=== PATIENT | male | born 2000 | race Caucasian/White ===

== ENCOUNTER 2023-01-10 04:07 | Emergency (ER) | payer BC ==
[2023-01-10 04:12] VITALS: RESP 16
[2023-01-10] MEDS ORDERED: IBUPROFEN 800 MG TAB PO STA (04:45)
[2023-01-10] MEDS ORDERED: dexAMETHasone 4 MG TAB PO STA (06:01)
--- NOTE | 2023-01-10 06:12 | XR ---
EXAMINATION TYPE: XR chest 2V DATE OF EXAM: 01/10/2023 COMPARISON: NONE HISTORY: Cough. TECHNIQUE: Frontal and lateral views of the chest are obtained. FINDINGS: There is no focal air space opacity, pleural effusion, or pneumothorax seen. The cardiac silhouette size is within normal limits. The osseous structures are intact. IMPRESSION: No acute infiltrate is seen.
--- NOTE | 2023-01-10 06:14 | ED ---
General Adult HPI - General Chief complaint: Upper Respiratory Infection Stated complaint: Flu-like symptoms Time Seen by Provider: 01/10/23 04:21 Source: patient, RN notes reviewed, old records reviewed Mode of arrival: EMS Limitations: no limitations - History of Present Illness Initial comments: Patient is a 22-year-old male who presents emergency Department with upper respiratory infection complaints. Endorses a sore throat, rhinorrhea, nonproductive cough. He is concerned he may have pneumonia. Patient does smoke. Is currently being treated with antibiotics for a tooth abscess which is improving. Denies any other acute complaints including nausea, vomiting, diarrhea. Presents for further evaluation at this time. Denies any fevers or sick contacts. - Related Data Allergies Allergy/AdvReac Type Severity Reaction Status Date / Time No Known Allergies Allergy Verified 01/10/23 04:12 Review of Systems ROS Statement: Those systems with pertinent positive or pertinent negative responses have been documented in the HPI. Review of Systems: CONST: Denies fever EYES: Denies blurry vision ENT: Endorses nasal congestion C/V: Denies Chest pain RESP: Denies shortness of breath GI: Denies abdominal pain : Denies dysuria SKIN: Denies rash. MSK: Denies joint pain. NEURO: Denies headache ROS Other: All systems not noted in ROS Statement are negative. Past Medical History Past Medical History: No Reported History History of Any Multi-Drug Resistant Organisms: None Reported Past Surgical History: Hernia Repair Past Psychological History: ADD/ADHD, Anxiety, Bipolar, Depression Smoking Status: Current every day smoker, Vaper Past Alcohol Use History: Occasional Past Drug Use History: Marijuana General Exam - General Exam Comments Initial Comments: General: Appears in no acute distress. Afebrile HEAD: Normal with no signs of head trauma. EYES: EOMI. ENT: Hearing grossly intact. Posterior oropharynx within acceptable limits. RESPIRATORY: No respiratory distress. No hypoxia. Clear breath sounds bilaterally. C/V: Regular rate and rhythm. ABD: Abdomen is nondistended. EXT: No obvious deformity. SKIN: No rashes or lesions observed on exposed skin. NEURO: Alert and oriented. Limitations: no limitations Course Vital Signs 01/10/23 01/10/23 01/10/23 04:08 04:20 05:12 Temperature 99 F 98.9 F Pulse Rate 88 79 Respiratory 16 16 16 Rate Blood Pressure 141/79 126/72 O2 Sat by Pulse 98 99 Oximetry Medical Decision Making - Medical Decision Making Was pt. sent in by a medical professional or institution (AGUEDA Lemus, [employer], urgent care, hospital, or snf...) When possible be specific @ -No Did you speak to anyone other than the patient for history (EMS, parent, family, police, friend...)? What history was obtained from this source @ -No Did you review nursing and triage notes (agree or disagree)? Why? @ -I reviewed and agree with nursing and triage notes Were old charts reviewed (outside hosp., previous admission, EMS record, old EKG, old radiological studies, urgent care reports/EKG's, snf records)? Report findings @ -No old charts were reviewed Differential Diagnosis (chest pain, altered mental status, abdominal pain women, abdominal pain men, vaginal bleeding, weakness, fever, dyspnea, syncope, headache, dizziness, GI bleed, back pain, seizure, CVA, palpatations, mental health, musculoskeletal)? @ -Viral syndrome, URI, pneumonia. This list is not all-inclusive. EKG interpreted by me (3pts min.). @ -None done X-rays interpreted by me (1pt min.). @ -Chest x-ray reveals no acute cardiopulmonary processes that is obvious. No infiltrate. CT interpreted by me (1pt min.). @ -None done U/S interpreted by me (1pt. min.). @ -None done What testing was considered but not performed or refused? (CT, X-rays, U/S, labs)? Why? @ -None What meds were considered but not given or refused? Why? @ -None Did you discuss the management of the patient with other professionals (professionals i.e. AGUEDA Lemus, [employer], lab, RT, psych nurse, social work coordinator, exercise teacher, teacher, learning officer, rifle case repairer)? Give summary @ -No Was smoking cessation discussed for >3mins.? @ -No Was critical care preformed (if so, how long)? @ -No Were there social determinants of health that impacted care today? How? (Homele ssness, low income, unemployed, alcoholism, drug addiction, transportation, low edu. Level, literacy, decrease access to med. care, group home, rehab)? @ -No Was there de-escalation of care discussed even if they declined (Discuss DNR or withdrawal of care, Hospice)? DNR status @ -No What co-morbidities impacted this encounter? (DM, HTN, Smoking, COPD, CAD, Cancer, CVA, ARF, Chemo, Hep., AIDS, mental health diagnosis, sleep apnea, morbid obesity)? @ -None Was patient admitted / discharged? Hospital course, mention meds given and route, prescriptions, significant lab abnormalities, going to OR and other pertinent info. @ -Based on the patient's presentation and physical exam, presents with upper respiratory symptoms. He is concerned that he may be having pneumonia or other URI. Vital signs within except for limits. Exam unremarkable. We will obtain chest x-ray his request as well as viral swab her throat swab. He was in agreement this plan. He will be symptomatically treated with a dose of steroid as well as Motrin. Chest x-ray shows no evidence of acute infection. Swabs and strep swab negative. After the patient. He'll be discharged home at this time. He was in agreement this plan. Discussed that he likely has a nonspecific viral uri. I instructed the patient to follow up with their PCP in the next 1-3 days. I explained that the patient should return to the emergency department if they experience any worsening symptoms. Strict return precautions were discussed with the patient. The patient expressed understanding of these instructions. I answered all questions that the patient had. The patient was discharged home in good condition with their prescriptions and follow up information. Undiagnosed new problem with uncertain prognosis? @ -No Drug Therapy requiring intensive monitoring for toxicity (Heparin, Nitro, Insulin, Cardizem)? @ -No Were any procedures done? @ -No Diagnosis/symptom? @ -Upper respiratory infection Acute, or Chronic, or Acute on Chronic? @ -Acute Uncomplicated (without systemic symptoms) or Complicated (systemic symptoms)? @ -Uncomplicated Side effects of treatment? @ -No Exacerbation, Progression, or Severe Exacerbation? @ -No Poses a threat to life or bodily function? How? (Chest pain, [place], [place], pneumonia, PE, COPD, DKA, ARF, appy, cholecystitis, CVA, Diverticulitis, Homicidal, Suicidal, threat to staff... and all critical care pts) @ -No - Lab Data Lab Results 01/10/23 01/10/23 Range/Units 04:47 04:47 Influenza Type A (PCR) Not Detected (Not Detectd) Influenza Type B (PCR) Not Detected (Not Detectd) RSV (PCR) Not Detected (Not Detectd) SARS-CoV-2 (PCR) Not Detected (Not Detectd) Group A Strep (PCR) NOT DETECTED (Not Detectd) Disposition Clinical Impression: URI (upper respiratory infection) Disposition: HOME SELF-CARE Condition: Good Is patient prescribed a controlled substance at d/c from ED?: No Referrals: Nonstaff,Physician [Primary Care Provider] - 1-2 days Time of Disposition: 06:05
[2023-01-10 06:16] VITALS: BP 126/72; PULSE 79; TEMP 98.9
== END 2023-01-10 06:17 | disposition home or self-care (01) ==
LOC: EC 04:07
DX: J06.9 Acute upper respiratory infection, unspecified (principal); F12.90 Cannabis use, unspecified, uncomplicated; F17.290 Nicotine dependence, other tobacco product, uncomplicated; Z86.59 Personal history of other mental and behavioral disorders; Z20.822 Contact with and (suspected) exposure to COVID-19
CPT/HCPCS: 87651; 87636; 71046; 99284; J8540

== ENCOUNTER 2023-03-20 14:44 | Inpatient (IN) | payer MEDICAID, OTHER ==
--- NOTE | 2023-03-20 15:29 | ED ---
General Adult HPI - General Source: patient, RN notes reviewed, old records reviewed Mode of arrival: ambulatory Limitations: no limitations <Jalil Encarnacion - Last Filed: 04/05/23 08:20> <Husam Watts - Last Filed: 04/10/23 03:28> - General Chief complaint: Psychiatric Symptoms Stated complaint: mental health Time Seen by Provider: 03/20/23 15:10 - History of Present Illness Initial comments: This is a 22-year-old male who presents emergency Department stating he is suicidal. Patient states he has a history of bipolar, depression, anxiety, borderline personality, and ADHD. Patient states he hasn't taking meds for quite a while. Patient states today he was clinical and was hanging himself. He decided that he didn't want to broke away from his depressive state as he put it and decided that he wanted to live and called the police. Patient denies any physical complaints today. Patient denies any headache patient denies any numbness weakness. Patient denies chest pain difficulty breathing or shortness of breath. Patient denies any nausea vomiting diarrhea. Patient denies any fever (Jalil Encarnacion) - Related Data Previous Rx's Medication Instructions Recorded ARIPiprazole [Abilify] 10 mg PO DAILY 30 Days #30 tab 03/26/23 Amoxicillin 500 mg PO Q8H 2 Days #6 cap 03/26/23 Nicotine 21Mg/24Hr Patch [Habitrol] 1 patch TRANSDERM DAILY 14 Days 03/26/23 #14 patch Nicotine Gum (Polacrilex) 2 mg BUCCAL Q4HR PRN 180 Days #30 03/26/23 [Nicorette] pieceofgum Ondansetron Odt [Zofran ODT] 8 mg PO BID PRN 14 Days #28 tab 03/26/23 Vortioxetine Hydrobromide 20 mg PO DAILY 30 Days #30 tab 03/26/23 [Trintellix] hydrOXYzine HCL [Atarax] 50 mg PO DAILY PRN 30 Days #60 tab 03/26/23 traZODone HCL [Desyrel] 100 mg PO HS 30 Days #30 tab 03/26/23 Allergies Allergy/AdvReac Type Severity Reaction Status Date / Time No Known Allergies Allergy Verified 03/28/23 13:51 Review of Systems ROS Other: All systems not noted in ROS Statement are negative. <Jalil Encarnacion - Last Filed: 04/05/23 08:20> ROS Other: All systems not noted in ROS Statement are negative. <Husam Watts - Last Filed: 04/10/23 03:28> ROS Statement: Those systems with pertinent positive or pertinent negative responses have been documented in the HPI. Past Medical History Past Medical History: No Reported History History of Any Multi-Drug Resistant Organisms: None Reported Past Surgical History: Hernia Repair Past Psychological History: ADD/ADHD, Anxiety, Bipolar, Depression Smoking Status: Current every day smoker, Vaper Past Alcohol Use History: Occasional Past Drug Use History: Marijuana - Past Family History Father Family Medical History: COPD <Jalil Encarnacion - Last Filed: 04/05/23 08:20> General Exam Limitations: no limitations <EncarnacionKhrisJalil - Last Filed: 04/05/23 08:20> - General Exam Comments Initial Comments: GENERAL: Patient is well-developed and well-nourished. Patient is nontoxic and well- hydrated and is in no acute distress. ENT: Neck is soft and supple. No significant lymphadenopathy is noted. Oropharynx is clear. Moist mucous membranes. Neck has full range of motion without eliciting any pain. EYES: The sclera were anicteric and conjunctiva were pink and moist. Extraocular movements were intact and pupils were equal round and reactive to light. Eyelids were unremarkable. PULMONARY: Unlabored respirations. Good breath sounds bilaterally. No audible rales rhonchi or wheezing was noted. CARDIOVASCULAR: There is a regular rate and rhythm without any murmurs gallops or rubs. ABDOMEN: Soft and nontender with normal bowel sounds. SKIN: Skin is clear with no lesions or rashes and otherwise unremarkable. NEUROLOGIC: Patient is alert and oriented x3. Cranial nerves II through XII are grossly intact. Motor and sensory are also intact. Normal speech, volume and content. Symmetrical smile. MUSCULOSKELETAL: Normal extremities with adequate strength and full range of motion. LYMPHATICS: No significant lymphadenopathy is noted PSYCHIATRIC: Patient states he is suicidal and was thinking of hanging himself. (Jalil Encarnacion) Course Vital Signs 03/20/23 03/20/23 03/21/23 14:56 20:29 04:29 Temperature 97.7 F Pulse Rate 89 86 72 Respiratory 16 18 20 Rate Blood Pressure 133/90 124/77 125/73 O2 Sat by Pulse 99 100 100 Oximetry Medical Decision Making - Lab Data Result diagrams: 03/22/23 11:08 03/22/23 11:08 <Jalil Encarnacion - Last Filed: 04/05/23 08:20> - Lab Data Result diagrams: 03/22/23 11:08 03/22/23 11:08 <Husam Watts - Last Filed: 04/10/23 03:28> - Medical Decision Making Was pt. sent in by a medical professional or institution (, [facility], GROUP PRESIDENT, urgent care, hospital, or alf...) When possible be specific @ -[No] Did you speak to anyone other than the patient for history (EMS, parent, family, police, friend...)? What history was obtained from this source @ -[No] Did you review nursing and triage notes (agree or disagree)? Why? @ -[I reviewed and agree with nursing and triage notes] Were old charts reviewed (outside hosp., previous admission, EMS record, old EKG, old radiological studies, urgent care reports/EKG's, alf records)? Report findings @ -[No old charts were reviewed] Differential Diagnosis (chest pain, altered mental status, abdominal pain women, abdominal pain men, vaginal bleeding, weakness, fever, dyspnea, syncope, headache, dizziness, GI bleed, back pain, seizure, CVA, palpatations, mental health, musculoskeletal)? @ -Frontal mental health EKG interpreted by me (3pts min.). @ -[As above] X-rays interpreted by me (1pt min.). @ -[None done] CT interpreted by me (1pt min.). @ -[None done] U/S interpreted by me (1pt. min.). @ -[None done] What testing was considered but not performed or refused? (CT, X-rays, U/S, labs)? Why? @ -[None] What meds were considered but not given or refused? Why? @ -[None] Did you discuss the management of the patient with other professionals (professionals i.e. AGUEDA Lemus, GROUP PRESIDENT, lab, RT, psych nurse, social worker health services, distributor advertising material, teacher, chief creative officer, food general manager)? Give summary @ -[No] Was smoking cessation discussed for >3mins.? @ -[No] Was critical care preformed (if so, how long)? @ -[No] Were there social determinants of health that impacted care today? How? (Homelessness, low income, unemployed, alcoholism, drug addiction, transportation, low edu. Level, literacy, decrease access to med. care, assisted, rehab)? @ -[No] Was there de-escalation of care discussed even if they declined (Discuss DNR or withdrawal of care, Hospice)? DNR status @ -[No] What co-morbidities impacted this encounter? (DM, HTN, Smoking, COPD, CAD, Cancer, CVA, ARF, Chemo, Hep., AIDS, mental health diagnosis, sleep apnea, morbid obesity)? @ -[None] Was patient admitted / discharged? Hospital course, mention meds given and route, prescriptions, significant lab abnormalities, going to OR and other pertinent info. @ -Currently we do not have any EPS nurse so patient is unable to be evaluated currently. Dr. Watts will take care of the patient starting at 9 PM (Jalil Encarnacion) Was patient admitted / discharged? Hospital course, mention meds given and route, prescriptions, significant lab abnormalities, going to OR and other pertinent info. @ -[The patient is subsequently seen by EPS and they will admit for further psychiatric care Undiagnosed new problem with uncertain prognosis? @ -[No] Drug Therapy requiring intensive monitoring for toxicity (Heparin, Nitro, Insulin, Cardizem)? @ -[No] Were any procedures done? @ -[No] Diagnosis/symptom? @ -[Acute on chronic mood disorder Acute suicidal ideation Acute, or Chronic, or Acute on Chronic? @ -[default] Uncomplicated (without systemic symptoms) or Complicated (systemic symptoms)? @ -[default] Side effects of treatment? @ -[No] Exacerbation, Progression, or Severe Exacerbation? @ -[No] Poses a threat to life or bodily function? How? (Chest pain, [place], [place], pneumonia, PE, COPD, DKA, ARF, appy, cholecystitis, CVA, Diverticulitis, Homicidal, Suicidal, threat to staff... and all critical care pts) @ -[Yes, worsening suicidal ideation may lead to attempt/ (Husam Watts) - Lab Data Lab Results 03/20/23 03/20/23 03/21/23 Range/Units 18:18 18:18 02:20 Urine Color Yellow Urine Appearance Clear (Clear) Urine pH 6.0 (5.0-8.0) Ur Specific [place] 1.020 (1.001-1.035) Urine Protein Trace H (Negative) Urine Glucose (UA) Negative (Negative) Urine Ketones Negative (Negative) Urine Blood Negative (Negative) Urine Nitrite Negative (Negative) Urine Bilirubin Negative (Negative) Urine Urobilinogen <2.0 (<2.0) mg/dL Ur Leukocyte Esterase Negative (Negative) Urine Opiates Screen Not Detected (NotDetected) Ur Oxycodone Screen Not Detected (NotDetected) Urine Methadone Screen Not Detected (NotDetected) Ur Propoxyphene Screen Not Detected (NotDetected) Ur Barbiturates Screen Not Detected (NotDetected) U Tricyclic Antidepress Not Detected (NotDetected) Ur Phencyclidine Scrn Not Detected (NotDetected) Ur Amphetamines Screen Not Detected (NotDetected) U Methamphetamines Scrn Not Detected (NotDetected) U Benzodiazepines Scrn Not Detected (NotDetected) Urine Cocaine Screen Not Detected (NotDetected) U Marijuana (THC) Screen Detected H (NotDetected) Coronavirus (PCR) Not Detected (Not Detectd) Disposition <Jalil Encarnacion - Last Filed: 04/05/23 08:20> <Husam Watts - Last Filed: 04/10/23 03:28> Clinical Impression: Mood disorder, Suicidal ideation Disposition: ADMITTED IP TO THIS [facility] Condition: Stable
[2023-03-20 18:49] LABS: Amphetamine Screen,Urine Not Detected (NotDetected); Barbiturate Screen,Urine Not Detected (NotDetected); Benzodiazepines Screen,Urine Not Detected (NotDetected); Cocaine Screen,Urine Not Detected (NotDetected); Methadone Screen, Urine Not Detected (NotDetected); Opiate Screen,Urine Not Detected (NotDetected); Phencyclidine Screen,Urine Not Detected (NotDetected); Tricyclic Antidepressant,Urine Not Detected (NotDetected); Urn Cannabinoid Scrn Detected (NotDetected)
[2023-03-20 18:50] LABS: Oxycodone Screen, Urine Not Detected (NotDetected)
[2023-03-20] MEDS: AMOXICILLIN 500 MG CAP PO SCH (20:30)
[2023-03-21] MEDS: AMOXICILLIN 500 MG CAP PO SCH ×3 (04:24→21:09)
[2023-03-21] MEDS ORDERED: hydrOXYzine HCL 50 MG/ML 1 ML VIAL IM PRN (05:11)
[2023-03-21] MEDS ORDERED: OLANZapine 10 MG VIAL IM PRN (05:11)
[2023-03-21] MEDS ORDERED: MAGNESIUM HYDROXIDE 2,400 MG/30 ML CUP PO PRN (05:11)
[2023-03-21 08:23] LABS: Appearance,Urine Clear (Clear); Bilirubin,Urine Negative (Negative); Blood,Urine Negative (Negative); Color,Urine Yellow; Glucose,Urine (UA) Negative (Negative); Ketones,Urine Negative (Negative); Leukocyte Esterase,Urine Negative (Negative); Nitrite,Urine Negative (Negative); Protein,Urine Trace (Negative); Urobilinogen,Urine <2.0 mg/dL (<2.0)
[2023-03-21] MEDS: NICOTINE 14MG/24HR PATCH TRANSDERM SCH (08:49)
[2023-03-21] MEDS: ARIPiprazole 5 MG TAB PO SCH (14:49)
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
[2023-03-21] MEDS: ESCITALOPRAM 5 MG TAB PO SCH (15:07)
[2023-03-21] MEDS: MAG HYDROX/AL HYDROX/SIMETH 30 ML CUP PO PRN (21:13)
[2023-03-21] MEDS: OLANZapine 5 MG TAB PO PRN (21:13)
--- NOTE | 2023-03-22 01:27 | P.CONS ---
History of Present Illness - Reason for Consult Consult date: 03/22/23 - History of Present Illness The patient is a 22-year-old male with a PMH of depression, anxiety, and ADHD who had presented to the emergency room with complaints of depression and suicidal ideation. The patient was admitted to the mental health unit where he was seen and evaluated. The patient reports that he has been going through a lot recently due to difficulties in his family relationships. He had plans of hanging himself. He denied any physical complaints at the time of interview. He denied experiencing chest discomfort, shortness of breath, fever, chills, cough, nausea, vomiting, abdominal pain, diarrhea. He reports recreational marijuana and tobacco use. Denied alcohol or additional substances. Review of systems: Pertinent positives and negatives as discussed in HPI, a complete review of systems was performed and all other systems are negative. Physical examination: General: non toxic, no distress, appears at stated age, normal weight Derm: no unusual rashes/lesions, no unusual ecchymoses, warm, dry Head: atraumatic, normocephalic, symmetric Eyes: EOMI, no lid lag, anicteric sclera ENT: Nose and ears atraumatic, no thrush, no pharyngeal erythema Neck: trachea midline, supple Mouth: no lip lesion, mucus membranes moist Cardiovascular: S1S2 reg, no murmur, no edema Lungs: CTA bilateral, no rhonchi, no rales , no accessory muscle use Abdominal: soft, nontender to palpation, no guarding Ext: no gross muscle atrophy, no contractures, Neuro: No gross focal neuro deficits noted Psych: Alert, oriented, appropriate affect Assessment: Marijuana and tobacco use Depression and suicidal ideation Imaging: None performed Data Review: Reviewed with urine tox cardiology positive for marijuana and UA unremarkable Plan: Advised on importance of cessation Defer management of depression and suicidal ideation to the primary psychiatry service Thank you for allowing us to participate in the care of this patient. We will follow peripherally. Do not hesitate to contact us with questions. Someone can be reached from the [facility] hospitalist group at all hours of the day a t [phone]. Past Medical History Past Medical History: No Reported History History of Any Multi-Drug Resistant Organisms: None Reported Past Surgical History: Hernia Repair Smoking Status: Current every day smoker, Vaper - Past Family History Father Family Medical History: COPD Medications and Allergies Home Medications Medication Instructions Recorded Confirmed Type Amoxicillin 500 mg PO Q8H 03/20/23 03/21/23 History Allergies Allergy/AdvReac Type Severity Reaction Status Date / Time No Known Allergies Allergy Verified 03/21/23 05:15 Physical Exam Vitals: Vital Signs Temp Pulse Pulse Resp BP BP Pulse Ox 03/21/23 06:23 98.0 F 63 14 117/77 99 03/21/23 04:29 72 20 125/73 100 Intake and Output 03/21/23 03/21/23 03/22/23 14:59 22:59 06:59 Other: Weight 62.256 kg Results Labs: Abnormal Lab Results - Last 24 Hours (Table) 03/20/23 Range/Units 18:18 Urine Protein Trace H (Negative)
[2023-03-22] MEDS: AMOXICILLIN 500 MG CAP PO SCH ×3 (04:17→20:57)
[2023-03-22] MEDS: ARIPiprazole 5 MG TAB PO SCH (08:56)
[2023-03-22] MEDS: ESCITALOPRAM 5 MG TAB PO SCH (08:56)
[2023-03-22] MEDS: NICOTINE 14MG/24HR PATCH TRANSDERM SCH (08:56)
[2023-03-22] MEDS: hydrOXYzine HCL 25 MG TAB PO PRN (09:00)
--- NOTE | 2023-03-22 09:46 | P.PN ---
Progress Note - Text Progress Note Date: 03/22/23 Interval history: Patient was seen today sitting in the lounge alone reading a book. Patient ap peared to have a depressed affect. He initially was fairly irritable with her anger and did not want to speak about the reason why he came to the hospital. He states that "tired to talk to the other doctor about the marijuana talk about it again". He states that he is still feeling fairly depressed, also was endorsing anxiety. He claims he is willing to have his medications adjusted and Lexapro increased. Claims that she is never tried trazodone and is willing to take it as she slept poorly last night. Continues trying to go to some groups. His appetite is fair at this time. He claims that he does not have a place to go once he is discharged due to getting kicked out of his girlfriend's house. At this time he is denying any current suicidal or homicidal ideations intent or plan. Denying any auditory or visual hallucinations. Mental status examination: General Appearance: Patient appears to be thin, stated age, hair dyed blond, nose ring. Patient appears to have fair hygiene and grooming. Behavior: Patient is seated without any agitated behavior. mildly irritable at times. Speech: Patient's speech is fluent and non-pressured. Mood/Affect: Patient reports their mood is depressed and anxious, affect is congruent and constricted. Suicidality/Homicidality: Patient denies having any homicidal ideation intent or plan. Denies any suicidal ideation, intent or plan today. Perceptions: Patient denies any visual hallucinations and denies any auditory hallucinations. Though content/process: There is no evidence of any delusional thought content and thought process is linear and goal-directed. vague and gaurded Memory and concentration: AOX3, grossly intact for the purposes of this session Judgment and insight: poor, improving mildly IMPRESSIONS: bipolar disorder unspecified Unspecified anxiety disorder Cannabis use disorder Nicotine dependence Borderline personality disorder PLAN: -Patient is admitted under voluntary status to MHU for stabilization of psychiatric symptoms and safety. Patient has signed adult voluntary form and is placed in patient's chart. -Medications: continue Abilify 5 mg daily for mood. increase Lexapro 10 mg daily for depression. add trazodone 50 mg qhs for insomnia/mood -Ativan and Haldol PRN for agitation/aggression -NRT - nicotine patch -SW on board for discharge planning. Encourage patient to participate in groups to work on coping skills. CPS report filed yesterday by Dr Soliz. likely discharge early next week, pt is homeless at this time.
[2023-03-22 11:17] LABS: Glucose,Whole Blood 120 mg/dL (70-110)
[2023-03-22 11:54] LABS: Basophils % (A) 1 %; Eosinophils % (A) 0 %; HCT 43.3 % (39.0-53.0); HGB 13.9 gm/dL (13.0-17.5); Lymphocytes % (A) 27 %; MCH 27.7 pg (25.0-35.0); MCV 86.6 fL (80.0-100.0); Mean Platelet Volume 7.5; Monocytes # (A) 0.4 k/uL (0-1.0); Monocytes % (A) 6 %; Neutrophils # (A) 4.8 k/uL (1.3-7.7); Neutrophils % (A) 65 %; Platelet Count 320 k/uL (150-450); RDW 15.1 % (11.5-15.5); WBC 7.3 k/uL (3.8-10.6)
[2023-03-22 12:12] LABS: ALT 18 U/L (4-49); AST 25 U/L (17-59); African American GFR (CKD) >90 (>60 ml/min/1.73 sqM); Albumin 5.4 g/dL (3.5-5.0); Alkaline Phosphatase 99 U/L (38-126); Anion Gap 11 mmol/L; Bilirubin, Delta 0.2 mg/dL (0.0-0.2); Bilirubin,Unconjugated 2.1 mg/dL (0.0-1.1); Blood Urea Nitrogen 16 mg/dL (9-20); Carbon Dioxide 26 mmol/L (22-30); Chloride 100 mmol/L (98-107); Glucose 113 mg/dL (74-99); Non-African American GFR(CKD) >90 (>60 ml/min/1.73 sqM); Sodium 137 mmol/L (137-145); Total Bilirubin 2.3 mg/dL (0.2-1.3); Total Protein 8.3 g/dL (6.3-8.2)
[2023-03-22] MEDS: ONDANSETRON ODT 8 MG TAB.RAPDIS PO PRN (12:17)
[2023-03-22] MEDS: NICOTINE 21MG/24HR PATCH TRANSDERM SCH (13:43)
[2023-03-22 16:18] LABS: Chol/HDL Ratio 2.41 Ratio; LDL Cholesterol,Calculated 84.4 mg/dL (0.0-131.0); VLDL Calculation 15.48 mg/dL (5.00-40.00)
[2023-03-22] MEDS ORDERED: traZODone HCL 50 MG TAB PO SCH (21:00)
[2023-03-23] MEDS: AMOXICILLIN 500 MG CAP PO SCH ×3 (04:55→20:41)
[2023-03-23 06:00] VITALS: RESP 18; TEMP 97.9
[2023-03-23] MEDS: NICOTINE 21MG/24HR PATCH TRANSDERM SCH ×2 (08:47→09:23)
[2023-03-23] MEDS: ARIPiprazole 5 MG TAB PO SCH (08:47)
[2023-03-23] MEDS ORDERED: NICOTINE GUM (POLACRILEX) 2 MG GUM BUCCAL PRN (08:59)
[2023-03-23] MEDS ORDERED: ESCITALOPRAM 10 MG TAB PO SCH (09:00)
[2023-03-23] MEDS: hydrOXYzine HCL 25 MG TAB PO PRN ×2 (09:17→16:38)
--- NOTE | 2023-03-23 11:55 | P.PN ---
Progress Note - Text Progress Note Date: 03/23/23 Interval history: Patient was seen today sitting in on group this morning and also in the aftern oon. Patient has been socializing with others on the unit more. He states that he was feeling very sick yesterday and believed that it was the Lexapro that was causing it. He claims that the Zofran did help and he is trying to stay hydrated. He claims that he still has a poor appetite since yesterday however we'll try to eat lunch today. He claims that he is feeling a bit better with regards to his mood over continues to endorse anxiety. He claims that he is still struggling with where he will live once he is discharged. He was asking about the [facility] situation in [place]. He claims he still feeling somewhat irritable and "snapped on someone" yesterday. States that he was able to sleep okay last night however did request. The trazodone increased. At this time he is denying any current suicidal or homicidal ideations intent or plan. Denying any auditory or visual hallucinations. Mental status examination: General Appearance: Patient appears to be thin, stated age, hair dyed blond, nose ring. Patient appears to have fair hygiene and grooming. Behavior: Patient is seated without any agitated behavior. Less irritable today, more cooperative. Speech: Patient's speech is fluent and non-pressured. Mood/Affect: Patient reports their mood is mainly anxious however improving, affect is congruent and constricted. Suicidality/Homicidality: Patient denies having any homicidal ideation intent or plan. Denies any suicidal ideation, intent or plan today. Perceptions: Patient denies any visual hallucinations and denies any auditory hallucinations. Though content/process: There is no evidence of any delusional thought content and thought process is linear and goal-directed. Memory and concentration: AOX3, grossly intact for the purposes of this session Judgment and insight: poor, improving mildly IMPRESSIONS: bipolar disorder unspecified Unspecified anxiety disorder Cannabis use disorder Nicotine dependence Borderline personality disorder PLAN: -Patient is admitted under voluntary status to MHU for stabilization of psychiatric symptoms and safety. Patient has signed adult voluntary form and is placed in patient's chart. -Medications: increase Abilify 10 mg daily for mood. d/c Lexapro due to possible a/e of nausea and replace with trintellix 20 mg daily for mood/anxiety increase trazodone 100 mg qhs for insomnia/mood -Ativan and Haldol PRN for agitation/aggression -NRT - nicotine patch -SW on board for discharge planning. Encourage patient to participate in groups to work on coping skills. CPS report filed by Dr Soliz on admission. likely discharge early next week, pt is homeless at this time and will likely be going to [facility].
[2023-03-23] MEDS ORDERED: LORazepam 1 MG TAB PO STA (12:47)
[2023-03-23] MEDS: VORTIOXETINE HYDROBROMIDE 20 MG TABLET PO SCH (13:22)
[2023-03-23] MEDS: ONDANSETRON ODT 8 MG TAB.RAPDIS PO PRN (14:33)
[2023-03-23] MEDS: traZODone HCL 100 MG TAB PO SCH (20:40)
[2023-03-24] MEDS: AMOXICILLIN 500 MG CAP PO SCH ×3 (05:14→20:30)
[2023-03-24] MEDS: ARIPiprazole 10 MG TAB PO SCH (08:38)
[2023-03-24] MEDS: NICOTINE 21MG/24HR PATCH TRANSDERM SCH (08:39)
[2023-03-24] MEDS: VORTIOXETINE HYDROBROMIDE 20 MG TABLET PO SCH (08:39)
[2023-03-24] MEDS: ONDANSETRON ODT 8 MG TAB.RAPDIS PO PRN ×2 (09:06→18:12)
--- NOTE | 2023-03-24 12:01 | P.PN ---
Subjective Progress Note Date: 03/24/23 Principal diagnosis: IMPRESSIONS: bipolar disorder unspecified Unspecified anxiety disorder Cannabis use disorder Nicotine dependence Borderline personality disorder Patient Name: Jed Saez Date of : 89 Patient Status: Inpatient Attending Provider: Armando Varela Date: 03/24/23 Initialization Date: 03/24/23 Follow-up by Dr. César Dennis M.D. for 03/24/23 Progress Note - Text Progress Note Date: 03/24/23 Interval history: The patient was seen today while he was walking in the hallway Patient stated that he has very important information that he would like to discuss Patient reports that he has started to sleepwalk since he was hospitalized He states that he only smokes weed and watches radio and watches TV all day He says that he has realized that he has multiple personalities and does not remember how many of these personalities that he may have He says that he is a completely different person at different times of the day He says that he cannot describe since he does not remember many of these personalities Mental status examination: General Appearance: Patient appears to be thin, stated age, hair dyed blond, nose ring. Patient appears to have fair hygiene and grooming. Behavior: Patient is without any agitated behavior. Mood/Affect: Patient reports their mood is mainly anxious however improving, affect is congruent and constricted. Suicidality/Homicidality: Patient denies having any homicidal ideation intent or plan. Denies any suicidal ideation, intent or plan today. Perceptions: Patient denies any visual hallucinations and denies any auditory hallucinations. Though content/process: There is no evidence of any delusional thought content and thought process is linear and goal-directed. Memory and concentration: AOX3, grossly intact for the purposes of this session Judgment and insight: poor, improving mildly IMPRESSIONS: bipolar disorder unspecified Unspecified anxiety disorder Cannabis use disorder Nicotine dependence Borderline personality disorder PLAN: -Patient is admitted under voluntary status to MHU for stabilization of psychiatric symptoms and safety. Patient has signed adult voluntary form and is placed in patient's chart. -Medications: increase Abilify 10 mg daily for mood. Lexapro has been discontinued due to possible a/e of nausea and replace with trintellix 20 mg daily for mood/anxiety trazodone 100 mg qhs for insomnia/mood -Ativan and Haldol PRN for agitation/aggression -NRT - nicotine patch - on board for discharge planning. Encourage patient to participate in groups to work on coping skills. CPS report filed by Dr Soliz on admission. likely discharge early next week, pt is homeless at this time and will likely be going to [facility]. César Dennis M.D. 03/24/2023 Objective - Vital Signs Vital signs: Vital Signs Temp 97.9 F 03/23/23 05:59 Pulse 72 03/24/23 04:39 Resp 18 03/23/23 05:59 BP 127/82 03/24/23 04:39 Pulse Ox 98 03/23/23 05:59 FiO2 - Labs CBC & Chem 7: 03/22/23 11:08 03/22/23 11:08
[2023-03-24] MEDS: hydrOXYzine HCL 25 MG TAB PO PRN (12:16)
[2023-03-24] MEDS: MAG HYDROX/AL HYDROX/SIMETH 30 ML CUP PO PRN ×2 (15:36→20:31)
[2023-03-24] MEDS: traZODone HCL 100 MG TAB PO SCH (20:31)
[2023-03-25] MEDS: hydrOXYzine HCL 25 MG TAB PO PRN ×3 (00:55→21:32)
[2023-03-25] MEDS: NICOTINE 21MG/24HR PATCH TRANSDERM SCH (05:02)
[2023-03-25] MEDS: AMOXICILLIN 500 MG CAP PO SCH ×3 (05:02→20:34)
[2023-03-25] MEDS: ACETAMINOPHEN TAB 325 MG TAB PO PRN ×2 (07:39→16:20)
[2023-03-25] MEDS: MAG HYDROX/AL HYDROX/SIMETH 30 ML CUP PO PRN (08:24)
[2023-03-25] MEDS: VORTIOXETINE HYDROBROMIDE 20 MG TABLET PO SCH (08:24)
[2023-03-25] MEDS: ARIPiprazole 10 MG TAB PO SCH (08:25)
[2023-03-25] MEDS: ONDANSETRON ODT 8 MG TAB.RAPDIS PO PRN (08:59)
--- NOTE | 2023-03-25 09:23 | P.PN ---
Subjective Progress Note Date: 03/25/23 Principal diagnosis: IMPRESSIONS: bipolar disorder unspecified Unspecified anxiety disorder Cannabis use disorder Nicotine dependence Borderline personality disorder Patient Name: Jed Saez Date of : 89 Patient Status: Inpatient Attending Provider: Armando Varela Date: 03/25/23 Follow-up by Dr. César Dennis M.D. for 03/25/23 Progress Note Date: 03/25/23 Interval history: The patient was just to be out of the room and this ad copy writer was able to have a conversation with the patient Patient however states that he was in a [place] and that he needs to go to take a shower Patient was asked about his the situation with homelessness where he snapped immediately stating that that was not my business and that it is something that he is not going to discuss Patient appears to be guarded and superficial with avoidant behavior Mental status examination: General Appearance: Patient appears to be thin, stated age, hair dyed blond, nose ring. Patient appears to have fair hygiene and grooming. Behavior: Patient is without any agitated behavior. Mood/Affect: Patient reports their mood is mainly anxious however improving, uncooperative today affect is congruent and constricted. Suicidality/Homicidality: Patient denies having any homicidal ideation intent or plan. Denies any suicidal ideation, intent or plan today. Perceptions: Patient denies any visual hallucinations and denies any auditory gonzalez llucinations. Though content/process: There is no evidence of any delusional thought content and thought process is linear and goal-directed. Memory and concentration: AOX3, grossly intact for the purposes of this session Judgment and insight: poor, improving mildly IMPRESSIONS: bipolar disorder unspecified Unspecified anxiety disorder Cannabis use disorder Nicotine dependence Borderline personality disorder PLAN: -Patient is admitted under voluntary status to MHU for stabilization of psy chiatric symptoms and safety. Patient has signed adult voluntary form and is placed in patient's chart. -Medications: increase Abilify 10 mg daily for mood. Lexapro has been discontinued due to possible a/e of nausea and replace with trintellix 20 mg daily for mood/anxiety trazodone 100 mg qhs for insomnia/mood -Ativan and Haldol PRN for agitation/aggression -NRT - nicotine patch -SW on board for discharge planning. Encourage patient to participate in groups to work on coping skills. CPS report filed by Dr Soliz on admission. likely discharge early next week, pt is homeless at this time and will likely be going to [facility]. Patient appears to be a candidate for long-term CBT DBT César Dennis M.D. 03/25/2023 Objective - Vital Signs Vital signs: Vital Signs Temp 97.9 F 03/25/23 06:04 Pulse 105 H 03/25/23 06:04 Resp 18 03/25/23 06:04 BP 148/71 03/25/23 06:04 Pulse Ox 98 03/25/23 06:04 FiO2 - Labs CBC & Chem 7: 03/22/23 11:08 03/22/23 11:08
[2023-03-25] MEDS: OLANZapine 5 MG TAB PO PRN (13:30)
[2023-03-25] MEDS: traZODone HCL 100 MG TAB PO SCH (21:31)
[2023-03-26] MEDS: AMOXICILLIN 500 MG CAP PO SCH ×2 (04:59→11:45)
[2023-03-26] MEDS: MAG HYDROX/AL HYDROX/SIMETH 30 ML CUP PO PRN (05:04)
[2023-03-26] MEDS: NICOTINE 21MG/24HR PATCH TRANSDERM SCH (05:57)
[2023-03-26 05:59] VITALS: BP 129/73; PULSE 97
[2023-03-26] MEDS: hydrOXYzine HCL 25 MG TAB PO PRN (06:13)
[2023-03-26] MEDS: ARIPiprazole 10 MG TAB PO SCH (08:00)
[2023-03-26] MEDS: VORTIOXETINE HYDROBROMIDE 20 MG TABLET PO SCH (08:00)
[2023-03-26] MEDS: ACETAMINOPHEN TAB 325 MG TAB PO PRN (08:01)
[2023-03-26] MEDS: ONDANSETRON ODT 8 MG TAB.RAPDIS PO PRN (09:39)
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
[2023-03-26 12:33] VITALS: BMI 19.7
== END 2023-03-26 17:18 | disposition home or self-care (01) | DRG 753 ==
LOC: EC 14:44 → 3MHU 03-21 05:01
PROVIDERS: ADMIT Psychiatry & Neurology Psychiatry; ATTEND Psychiatry & Neurology Psychiatry
DX: F31.9 Bipolar disorder, unspecified (principal); Z20.822 Contact with and (suspected) exposure to COVID-19; F39 Unspecified mood [affective] disorder; F41.9 Anxiety disorder, unspecified; G47.00 Insomnia, unspecified; F90.9 Attention-deficit hyperactivity disorder, unspecified type; I10 Essential (primary) hypertension; F60.3 Borderline personality disorder; R45.851 Suicidal ideations; Z79.899 Other long term (current) drug therapy; Z91.51 Personal history of suicidal behavior
CPT/HCPCS: 80053; 80061; 80306; 81003; 82075; 82248; 83036; 84443; 85025; 87635; 99285

== ENCOUNTER 2023-03-28 13:19 | Emergency (ER) | payer OTHER ==
[2023-03-28 13:51] VITALS: RESP 18
--- NOTE | 2023-03-28 13:56 | ED ---
ENT HPI - General Source: patient Mode of arrival: ambulatory Limitations: no limitations <Evan Rogel - Last Filed: 03/28/23 13:56> <Geraldine Mac - Last Filed: 03/28/23 20:19> - General Chief complaint: Dental/Oral Stated complaint: poss blood poisoning - History of Present Illness Initial comments: 22 year old male Presents to the ED with a chief complaint of dental pain. Patient states known abscess of the tooth on the left and notes that he has been on antibiotics for this for the past year. Patient states that he is currently on amoxicillin 500 mg. States today started to feel "out of it" and states that his face feels like "TV static". (Evan Rogel) Patient is 22-year-old male who presents the emergency department with concern for "blood poisoning." Patient states he was looking up symptoms on the [employer] website and became anxious about blood poisoning today. He reports mild dental pain in his upper left tooth which is not new. Patient has had this pain for about a month. States he has intermittently been on amoxicillin for dental infection for one year prescribed by urgent cares. Patient states he feels foggy. States he was recently discharged from [facility] during which he went through marijuana withdrawal. He denies fever, chills, nausea, vomiting, facial swelling, throat pain lockjaw, muffled voice. Denies chest pain, shortness of breath, abdominal pain. Patient does state he is very anxious. (Geraldine Mac) - Related Data Previous Rx's Medication Instructions Recorded ARIPiprazole [Abilify] 10 mg PO DAILY 30 Days #30 tab 03/26/23 Amoxicillin 500 mg PO Q8H 2 Days #6 cap 03/26/23 Nicotine 21Mg/24Hr Patch [Habitrol] 1 patch TRANSDERM DAILY 14 Days 03/26/23 #14 patch Nicotine Gum (Polacrilex) 2 mg BUCCAL Q4HR PRN 180 Days #30 03/26/23 [Nicorette] pieceofgum Ondansetron Odt [Zofran ODT] 8 mg PO BID PRN 14 Days #28 tab 03/26/23 Vortioxetine Hydrobromide 20 mg PO DAILY 30 Days #30 tab 03/26/23 [Trintellix] hydrOXYzine HCL [Atarax] 50 mg PO DAILY PRN 30 Days #60 tab 03/26/23 traZODone HCL [Desyrel] 100 mg PO HS 30 Days #30 tab 03/26/23 Allergies Allergy/AdvReac Type Severity Reaction Status Date / Time No Known Allergies Allergy Verified 03/28/23 13:51 Review of Systems ROS Other: All systems not noted in ROS Statement are negative. <Evan Rogel - Last Filed: 03/28/23 13:56> ROS Other: All systems not noted in ROS Statement are negative. <Geraldine Mac - Last Filed: 03/28/23 20:19> ROS Statement: Those systems with pertinent positive or pertinent negative responses have been documented in the HPI. Past Medical History Past Medical History: No Reported History History of Any Multi-Drug Resistant Organisms: None Reported Past Surgical History: Hernia Repair Past Psychological History: ADD/ADHD, Anxiety, Bipolar, Depression Smoking Status: Current every day smoker, Vaper Past Alcohol Use History: Occasional Past Drug Use History: None Reported, Marijuana - Past Family History Father Family Medical History: COPD <Juan FEvan - Last Filed: 03/28/23 13:56> General Exam Limitations: no limitations General appearance: alert, in no apparent distress Eye exam: Present: normal appearance Neck exam: Present: normal inspection Extremities exam: Present: normal inspection Back exam: Present: normal inspection Neurological exam: Present: alert, oriented X3 <Juan FEvan - Last Filed: 03/28/23 13:56> General appearance: alert, anxious Eye exam: Present: normal appearance, PERRL, EOMI. Absent: scleral icterus, conjunctival injection, periorbital swelling ENT exam: Present: normal oropharynx (No evidence of infection or abscess) Respiratory exam: Present: normal lung sounds bilaterally. Absent: respiratory distress, wheezes, rales, rhonchi, stridor Cardiovascular Exam: Present: regular rate, normal rhythm, normal heart sounds. Absent: systolic murmur, diastolic murmur, rubs, gallop, clicks GI/Abdominal exam: Present: soft, normal bowel sounds. Absent: distended, tenderness, guarding, rebound, rigid Psychiatric exam: Present: anxious Skin exam: Present: warm, dry, intact, normal color. Absent: rash <Geraldine Mac - Last Filed: 03/28/23 20:19> Course Vital Signs 03/28/23 03/28/23 13:47 16:47 Temperature 98.7 F 97.6 F Pulse Rate 82 78 Respiratory 18 18 Rate Blood Pressure 157/95 153/89 O2 Sat by Pulse 100 97 Oximetry Medical Decision Making <Evan Rogel - Last Filed: 03/28/23 13:56> <EstefaniaGeraldine - Last Filed: 03/28/23 20:19> - Medical Decision Making Quicknote portion performed. Signed Evan Rogel PA-C (Evan Rogel) Was pt. sent in by a medical professional or institution ([facility] Lemus, SALES AND OPERATIONS TRAINEE, urgent care, hospital, or [facility]...) When possible be specific @ -No Did you speak to anyone other than the patient for history (EMS, parent, family, police, friend...)? What history was obtained from this source @ -No Did you review nursing and triage notes (agree or disagree)? Why? @ -I reviewed and agree with nursing and triage notes Were old charts reviewed (outside hosp., previous admission, EMS record, old EKG, old radiological studies, urgent care reports/EKG's, [facility] records)? Report findings @ -No old charts were reviewed Differential Diagnosis (chest pain, altered mental status, abdominal pain women, abdominal pain men, vaginal bleeding, weakness, fever, dyspnea, syncope, headache, dizziness, GI bleed, back pain, seizure, CVA, palpatations, mental health)? @ -dental infection, abscess, sepsis. This list is not mentally all-inclusive EKG interpreted by me (3pts min.). @ -As above X-rays interpreted by me (1pt min.). @ -None done CT interpreted by me (1pt min.). @ -None done U/S interpreted by me (1pt. min.). @ -None done What testing was considered but not performed or refused? (CT, X-rays, U/S, labs)? Why? @ -None What meds were considered but not given or refused? Why? @ -None Did you discuss the management of the patient with other professionals (professionals i.e. , [facility], SALES AND OPERATIONS TRAINEE, lab, RT, psych nurse, community mental health social worker, asp net software developer, teacher, vessel traffic officer, lead case manager)? Give summary @ -No Was smoking cessation discussed for >3mins.? @ -No Was critical care preformed (if so, how long)? @ -No Were there social determinants of health that impacted care today? How? (Homelessness, low income, unemployed, alcoholism, drug addiction, transportation, low edu. Level, literacy, decrease access to med. care, usp, rehab)? @ -No Was there de-escalation of care discussed even if they declined (Discuss DNR or withdrawal of care, Hospice)? DNR status @ -No What co-morbidities impacted this encounter? (DM, HTN, Smoking, COPD, CAD, Cancer, CVA, ARF, Chemo, Hep., AIDS, mental health diagnosis, sleep apnea, morbid obesity)? @ -None Was patient admitted / discharged? Hospital course, mention meds given and route, prescriptions, significant lab abnormalities, going to OR and other pertinent info. @ -Patient presenting with concern for blood poisoning. He is nontoxic appearing, afebrile. No evidence of dental infection. Further workup with laboratory studies and imaging not indicated. Clinical presentation is not consistent with sepsis. Patient discharged in stable medical condition. He is to follow-up with primary care provider. Undiagnosed new problem with uncertain prognosis? @ -No Drug Therapy requiring intensive monitoring for toxicity (Heparin, Nitro, Insulin, Cardizem)? @ -No Were any procedures done? @ -No Diagnosis/symptom? @ Feared condition not demonstrated, anxiety Acute, or Chronic, or Acute on Chronic? @ -acute Uncomplicated (without systemic symptoms) or Complicated (systemic symptoms)? @ -uncomplicated Side effects of treatment? @ -No Exacerbation, Progression, or Severe Exacerbation? @ -No Poses a threat to life or bodily function? How? (Chest pain, [place], [place], pneumonia, PE, COPD, DKA, ARF, appy, cholecystitis, CVA, Diverticulitis, Homicidal, Suicidal, threat to staff... and all critical care pts) @ -No Dr. Bernal is my attending (Geraldine Mac) Disposition <Evan Rogel - Last Filed: 03/28/23 13:56> Is patient prescribed a controlled substance at d/c from ED?: No <Estefania,Geraldine - Last Filed: 03/28/23 20:19> Clinical Impression: Feared condition not demonstrated Disposition: HOME SELF-CARE Condition: Good Instructions (If sedation given, give patient instructions): Dental Abscess (ED), Toothache (ED), Anxiety (ED) Additional Instructions: Please follow-up with your primary care provider in 1-2 days. Return to the emergency department if you experience new, concerning, or worsening symptoms. Referrals: Allen Noonan MD [Primary Care Provider] - 1-2 days
[2023-03-28 16:49] VITALS: BP 153/89; PULSE 78; TEMP 97.6
== END 2023-03-28 18:02 | disposition home or self-care (01) ==
LOC: EC 13:19
DX: Z71.1 Person with feared health complaint in whom no diagnosis is made (principal); F17.290 Nicotine dependence, other tobacco product, uncomplicated; F12.90 Cannabis use, unspecified, uncomplicated; Z86.59 Personal history of other mental and behavioral disorders
CPT/HCPCS: 99282

== ENCOUNTER 2023-06-02 15:05 | Emergency (ER) | payer OTHER ==
[2023-06-02 15:23] VITALS: BP 111/62; PULSE 94; RESP 20; TEMP 98.4
--- NOTE | 2023-06-02 15:24 | ED ---
Skin/Abscess/FB HPI - General Chief complaint: Skin/Abscess/Foreign Body Stated complaint: Back sore Time Seen by Provider: 06/02/23 15:13 Source: patient, RN notes reviewed, old records reviewed Mode of arrival: ambulatory Limitations: no limitations - History of Present Illness Initial comments: 22-year-old well-appearing male presents ambulatory with complaints of a abscess on his left posterior shoulder since May 28. Patient states he had a similar abscess on his right chest wall on May 25 which is now resolved. He was placed on antibiotics and is currently taking them but does not remember the name. States there was concern for MRSA. He has been picking at the wound on his back and it is now tender to touch and draining clear yellow fluid. Patient is a daily smoker, marijuana, social drinker. States tetanus shot is up-to-date. MD complaint: abscess/boil -: days(s) (5) Tetanus Up to Date: yes Location: back (upper left posterior shoulder ) Severity scale (1-10): 7 Quality: constant Consistency: constant Improves with: none Worsens with: palpation Context: other (previous lesion right chest wall 05/25/23 now resolved, on unknown abx currently ) Associated symptoms: denies other symptoms Treatments Prior to Arrival: bandages, other (unknown antibiotic) - Related Data Previous Rx's Medication Instructions Recorded ARIPiprazole [Abilify] 10 mg PO DAILY 30 Days #30 tab 03/26/23 Amoxicillin 500 mg PO Q8H 2 Days #6 cap 03/26/23 Nicotine 21Mg/24Hr Patch [Habitrol] 1 patch TRANSDERM DAILY 14 Days 03/26/23 #14 patch Nicotine Gum (Polacrilex) 2 mg BUCCAL Q4HR PRN 180 Days #30 03/26/23 [Nicorette] pieceofgum Ondansetron Odt [Zofran ODT] 8 mg PO BID PRN 14 Days #28 tab 03/26/23 Vortioxetine Hydrobromide 20 mg PO DAILY 30 Days #30 tab 03/26/23 [Trintellix] hydrOXYzine HCL [Atarax] 50 mg PO DAILY PRN 30 Days #60 tab 03/26/23 traZODone HCL [Desyrel] 100 mg PO HS 30 Days #30 tab 03/26/23 Allergies Allergy/AdvReac Type Severity Reaction Status Date / Time No Known Allergies Allergy Verified 03/28/23 13:51 Review of Systems ROS Statement: Those systems with pertinent positive or pertinent negative responses have been documented in the HPI. ROS Other: All systems not noted in ROS Statement are negative. Past Medical History Past Medical History: No Reported History Additional Past Medical History / Comment(s): Borderline personality disorder, History of Any Multi-Drug Resistant Organisms: None Reported Past Surgical History: Hernia Repair Past Psychological History: ADD/ADHD, Anxiety, Bipolar, Depression Smoking Status: Current every day smoker Past Alcohol Use History: Occasional Past Drug Use History: None Reported, Marijuana - Past Family History Father Family Medical History: COPD General Exam Limitations: no limitations General appearance: alert, in no apparent distress Head exam: Present: atraumatic, normocephalic Eye exam: Present: normal appearance. Absent: scleral icterus, conjunctival injection, periorbital swelling Neck exam: Present: full ROM Respiratory exam: Absent: respiratory distress, accessory muscle use Cardiovascular Exam: Present: regular rate Back exam: Present: other (ulceration approx 1cm left posterior shoulder with minimal yellow drainage, no cellulitis) Neurological exam: Present: alert, oriented X3 Psychiatric exam: Present: normal affect, normal mood Skin exam: Present: warm, dry, normal color. Absent: cyanosis, diaphoretic, petechiae, pallor Course Vital Signs 06/02/23 15:07 Temperature 98.4 F Pulse Rate 94 Respiratory 20 Rate Blood Pressure 111/62 O2 Sat by Pulse 99 Oximetry Medical Decision Making - Medical Decision Making Was pt. sent in by a medical professional or institution (, PA, [employer], urgent care, hospital, or snf...) When possible be specific @ -No Did you speak to anyone other than the patient for history (EMS, parent, family, police, friend...)? What history was obtained from this source @ -No Did you review nursing and triage notes (agree or disagree)? Why? @ -I reviewed and agree with nursing and triage notes Were old charts reviewed (outside hosp., previous admission, EMS record, old EKG, old radiological studies, urgent care reports/EKG's, snf records)? Report findings @ -No old charts were reviewed Differential Diagnosis (chest pain, altered mental status, abdominal pain women, abdominal pain men, vaginal bleeding, weakness, fever, dyspnea, syncope, headache, dizziness, GI bleed, back pain, seizure, CVA, palpatations, mental health, musculoskeletal)? @ -Abscess, cellulitis, cyst EKG interpreted by me (3pts min.). @ -none X-rays interpreted by me (1pt min.). @ -None done CT interpreted by me (1pt min.). @ -None done U/S interpreted by me (1pt. min.). @ -None done What testing was considered but not performed or refused? (CT, X-rays, U/S, labs)? Why? @ -None What meds were considered but not given or refused? Why? @ -Patient states he is currently taking Keflex and Bactrim prescribed 2 days ago along with mupirocin ointment Did you discuss the management of the patient with other professionals (professionals i.e. , PA, [employer], lab, RT, psych nurse, social work job titles, microfilm operator, teacher, intelligence officer basic, director case)? Give summary @ -No Was smoking cessation discussed for >3mins.? @ -Yes Was critical care preformed (if so, how long)? @ -No Were there social determinants of health that impacted care today? How? (Homelessness, low income, unemployed, alcoholism, drug addiction, transport ation, low edu. Level, literacy, decrease access to med. care, penitentiary, rehab)? @ -No Was there de-escalation of care discussed even if they declined (Discuss DNR or withdrawal of care, Hospice)? DNR status @ -No What co-morbidities impacted this encounter? (DM, HTN, Smoking, COPD, CAD, Cancer, CVA, ARF, Chemo, Hep., AIDS, mental health diagnosis, sleep apnea, morbid obesity)? @ -Patient has history of ADHD, anxiety, bipolar depression, daily smoker. Was patient admitted / discharged? Hospital course, mention meds given and route, prescriptions, significant lab abnormalities, going to OR and other pertinent info. @ -Discharged 22-year-old well-appearing male presents ambulatory with complaints of a abscess on his left posterior shoulder since May 28. Patient states he had a similar abscess on his right chest wall on May 25 which is now resolved. He was placed on antibiotics and is currently taking them but does not remember the name. States there was concern for MRSA. He has been picking at the wound on his back and it is now tender to touch and draining clear yellow fluid. Patient is a daily smoker, marijuana, social drinker. States tetanus shot is up-to-date. On physical examination there is a 1 cm ulceration left posterior shoulder with no surrounding erythema. Minimal creamy drainage which was sent for culture. Patient was prescribed Bactrim, Keflex and Rocephin at [facility] urgent care 2 days ago and continues to take his medications. He was directed to stop smoking. Keep wound covered with mupirocin and bandage. Wash hands frequently. Follow-up with his primary care doctor next week. Return to the emergency room with a normal continues symptoms. He is agreeable to this plan of care. Case discussed with Dr. Siu Undiagnosed new problem with uncertain prognosis? @ -No Drug Therapy requiring intensive monitoring for toxicity (Heparin, Nitro, Insulin, Cardizem)? @ -No Were any procedures done? @ -No Diagnosis/symptom? @ -Acute wound status post abscess Acute, or Chronic, or Acute on Chronic? @ -Acute Uncomplicated (without systemic symptoms) or Complicated (systemic symptoms)? @ -Uncomplicated Side effects of treatment? @ -No Exacerbation, Progression, or Severe Exacerbation? @ -No Poses a threat to life or bodily function? How? (Chest pain, [place], [place], pneumonia, PE, COPD, DKA, ARF, appy, cholecystitis, CVA, Diverticulitis, Homicidal, Suicidal, threat to staff... and all critical care pts) @ -No Disposition Clinical Impression: Wound abscess Disposition: HOME SELF-CARE Condition: Good Instructions (If sedation given, give patient instructions): Acute Wound Care (ED) Additional Instructions: Keep wound covered with mupirocin ointment as prescribed. Continue the Bactrim and Keflex as prescribed by urgent care. Stop smoking. Follow-up with your primary care doctor next week and return to the emergency room with any new or concerning symptoms. Is patient prescribed a controlled substance at d/c from ED?: No Referrals: Allen Noonan MD [Primary Care Provider] - 1-2 days Time of Disposition: 15:32
== END 2023-06-02 15:56 | disposition home or self-care (01) ==
LOC: EC 15:05
DX: Z96.612 Presence of left artificial shoulder joint (principal); F17.200 Nicotine dependence, unspecified, uncomplicated; F12.90 Cannabis use, unspecified, uncomplicated; Z86.59 Personal history of other mental and behavioral disorders
CPT/HCPCS: 87070; 87205; 99282

== ENCOUNTER 2024-02-29 15:09 | Emergency (ER) | payer OTHER ==
[2024-02-29 15:39] VITALS: RESP 18
--- NOTE | 2024-02-29 16:16 | ED ---
Nausea/Vomiting/Diarrhea HPI - General Source: patient, RN notes reviewed Mode of arrival: ambulatory Limitations: no limitations <Candace Jeffery - Last Filed: 02/29/24 16:14> - General Source: patient, RN notes reviewed, old records reviewed <Tray Longoria - Last Filed: 02/29/24 22:03> - General Chief complaint: Nausea/Vomiting/Diarrhea Stated complaint: Heat Exhaustion,ARMINDA Time Seen by Provider: 02/29/24 15:24 - History of Present Illness Initial comments: Cynthia notethis is a 23-year-old male presents emergency department chief complaint of exhaustion after being in the heat. 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 Patient denies any syncopal event or passing out. Currently, patient states that he feels better after he was given fluids via EMS. (Candace Jeffery) Patient is a 23-year-old male who presents emergency department complaining of what appears to be heat exhaustion. 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 States that he was wearing sunblock and attempting to stay hydrated but he felt lightheaded, nauseous. Had some shortness of breath with this as well. EMS provided the patient with 500 cc fluid bolus as well as Zofran and he felt improved. Patient was worked up as a quick note. I evaluated patient when he is placed in a room. He states he is feeling improved at this time. No significant past medical history. (Tray Longoria) - Related Data Previous Rx's Medication Instructions Recorded ARIPiprazole [Abilify] 10 mg PO DAILY 30 Days #30 tab 03/26/23 Amoxicillin 500 mg PO Q8H 2 Days #6 cap 03/26/23 Nicotine 21Mg/24Hr Patch [Habitrol] 1 patch TRANSDERM DAILY 14 Days 03/26/23 #14 patch Nicotine Gum (Polacrilex) 2 mg BUCCAL Q4HR PRN 180 Days #30 03/26/23 [Nicorette] pieceofgum Ondansetron Odt [Zofran ODT] 8 mg PO BID PRN 14 Days #28 tab 03/26/23 Vortioxetine Hydrobromide 20 mg PO DAILY 30 Days #30 tab 03/26/23 [Trintellix] hydrOXYzine HCL [Atarax] 50 mg PO DAILY PRN 30 Days #60 tab 03/26/23 traZODone HCL [Desyrel] 100 mg PO HS 30 Days #30 tab 03/26/23 Allergies Allergy/AdvReac Type Severity Reaction Status Date / Time No Known Allergies Allergy Verified 02/29/24 15:39 Review of Systems ROS Other: All systems not noted in ROS Statement are negative. <Candace Jeffery - Last Filed: 02/29/24 16:14> ROS Other: All systems not noted in ROS Statement are negative. <Tray Longoria - Last Filed: 02/29/24 22:03> ROS Statement: Those systems with pertinent positive or pertinent negative responses have been documented in the HPI. Review of Systems: CONST: Denies fever EYES: Denies blurry vision ENT: Denies nasal congestion C/V: Denies Chest pain RESP: Denies shortness of breath GI: Denies abdominal pain : Denies dysuria SKIN: Denies rash. MSK: Denies joint pain. NEURO: Denies headache (Tray Longoria) Past Medical History Past Medical History: No Reported History Additional Past Medical History / Comment(s): Borderline personality disorder, History of Any Multi-Drug Resistant Organisms: MRSA Date of last positivie culture/infection: 06/02/23 MDRO Source:: Back Past Surgical History: Hernia Repair Past Psychological History: ADD/ADHD, Anxiety, Bipolar, Depression Smoking Status: Current every day smoker Past Alcohol Use History: Occasional Past Drug Use History: Marijuana - Past Family History Father Family Medical History: COPD <Candace Jeffery - Last Filed: 02/29/24 16:14> General Exam Limitations: no limitations <Candace Jeffery - Last Filed: 02/29/24 16:14> <Tray Longoria - Last Filed: 02/29/24 22:03> - General Exam Comments Initial Comments: Visual Physical Exam Vital signs reviewed General: Well-appearing, nontoxic, no acute distress. Head: Normocephalic, atraumatic Eyes: PERRLA, EOMI ENT: Airway patent Chest: Nonlabored breathing Skin: No visual rash, normal skin tone Neuro: Alert and oriented 3 Musculoskeletal: No gross abnormalities (Candace Jeffery) General: Appears in no acute distress. HEAD: Normal with no signs of head trauma. EYES: PERRLA, EOMI, conjunctiva normal, no discharge. ENT: Hearing grossly intact, normal oropharynx. RESPIRATORY: Clear breath sounds bilaterally. No wheezes, rales, or rhonchi. C/V: Regular rate and rhythm. S1 and S2 auscultated, no edema, peripheral pulses 2+ and intact throughout ABD: Abd is soft, nontender, nondistended EXT: Normal range of motion, no obvious deformity SKIN: Appears to have sunburn over bilateral shoulders. NEURO: Alert and oriented x 4. Cranial nerves II-XII intact. No focal sensory o r strength deficits. (Tray Longoria) Course Vital Signs 02/29/24 02/29/24 02/29/24 15:36 18:53 19:20 Temperature 98.1 F 98 F 98 F Pulse Rate 88 82 78 Respiratory 18 18 18 Rate Blood Pressure 128/78 120/79 121/87 O2 Sat by Pulse 99 99 99 Oximetry Medical Decision Making <Candace Jeffery - Last Filed: 02/29/24 16:14> - Lab Data Result diagrams: 02/29/24 16:56 02/29/24 16:56 <Tray Longoria - Last Filed: 02/29/24 22:03> - Medical Decision Making I completed the quick note portion of this chart signed Candace Jeffery PA-C (Candace Jeffery) Was pt. sent in by a medical professional or institution ([facility] Lemus, [employer], urgent care, hospital, or half-way...) When possible be specific @ -No Did you speak to anyone other than the patient for history (EMS, parent, family, police, friend...)? What history was obtained from this source @ -No Did you review nursing and triage notes (agree or disagree)? Why? @ -I reviewed and agree with nursing and triage notes Were old charts reviewed (outside hosp., previous admission, EMS record, old EKG, old radiological studies, urgent care reports/EKG's, half-way records)? Report findings @ -No old charts were reviewed Differential Diagnosis (chest pain, altered mental status, abdominal pain women, abdominal pain men, vaginal bleeding, weakness, fever, dyspnea, syncope, headache, dizziness, GI bleed, back pain, seizure, CVA, palpatations, mental health, musculoskeletal)? @ -Heat exhaustion, dehydration, [place]. This list is not all inclusive. EKG interpreted by me (3pts min.). @ -None done X-rays interpreted by me (1pt min.). @ -None done CT interpreted by me (1pt min.). @ -None done U/S interpreted by me (1pt. min.). @ -None done What testing was considered but not performed or refused? (CT, X-rays, U/S, labs)? Why? @ -None What meds were considered but not given or refused? Why? @ -None Did you discuss the management of the patient with other professionals (professionals i.e. , PA, WASTE RECLAIMER, lab, RT, psych nurse, social services analyst, rn plasma center, teacher, geological technical officer, director of casework services)? Give summary @ -No Was smoking cessation discussed for >3mins.? @ -No Was critical care preformed (if so, how long)? @ -No Were there social determinants of health that impacted care today? How? (Homelessness, low income, unemployed, alcoholism, drug addiction, transportation, low edu. Level, literacy, decrease access to med. care, [facility], rehab)? @ -No Was there de-escalation of care discussed even if they declined (Discuss DNR or withdrawal of care, Hospice)? DNR status @ -No What co-morbidities impacted this encounter? (DM, HTN, Smoking, COPD, CAD, Cancer, CVA, ARF, Chemo, Hep., AIDS, mental health diagnosis, sleep apnea, morbid obesity)? @ -None Was patient admitted / discharged? Hospital course, mention meds given and route, prescriptions, significant lab abnormalities, going to OR and other pertinent info. @ -Patient originally presents as a quick note. I evaluated him when he was placed in room. Presents for suspected heat exhaustion and dehydration. After Zofran and a small fluid bolus he feels improved. Did recommend 2 L fluid bolus which she was in agreement with and I will add on creatinine kinase. Patient was in agreement this plan. Vital signs within acceptable limits. Laboratory studies are all unremarkable including the normal creatinine kinase. I update the patient at this time. He would like to go home. I believe this is reasonable. Strict return precautions discussed. Recommended he remain hydrated if he is working outside in the hot heat as well as using sunblock as he appears to have sunburn. I instructed the patient to follow up with their PCP in the next 1-3 days. I explained that the patient should return to the emergency department if they experience any worsening symptoms. Strict return precautions were discussed with the patient. The patient expressed understanding of these instructions. I answered all questions that the patient had. The patient was discharged home in good condition with their prescriptions and follow up information. Undiagnosed new problem with uncertain prognosis? @ -No Drug Therapy requiring intensive monitoring for toxicity (Heparin, Nitro, Insulin, Cardizem)? @ -No Were any procedures done? @ -No Diagnosis/symptom? @ -Heat exhaustion, dehydration,sunburn Acute, or Chronic, or Acute on Chronic? @ -Acute Uncomplicated (without systemic symptoms) or Complicated (systemic symptoms)? @ -Complicated Side effects of treatment? @ -No Exacerbation, Progression, or Severe Exacerbation? @ -No Poses a threat to life or bodily function? How? (Chest pain, [place], [place], pneumonia, PE, COPD, DKA, ARF, appy, cholecystitis, CVA, Diverticulitis, Homicidal, Suicidal, threat to staff... and all critical care pts) @ -Likely (Tray Longoria) - Lab Data Lab Results 02/29/24 02/29/24 02/29/24 Range/Units 16:56 16:56 18:17 WBC 6.2 (3.8-10.6) k/uL RBC 4.64 (4.30-5.90) m/uL Hgb 13.5 (13.0-17.5) gm/dL Hct 41.5 (39.0-53.0) % MCV 89.4 (80.0-100.0) fL MCH 29.2 (25.0-35.0) pg MCHC 32.7 (31.0-37.0) g/dL RDW 12.6 (11.5-15.5) % Plt Count 237 (150-450) k/uL MPV 7.0 Neutrophils % 57 % Lymphocytes % 33 % Monocytes % 6 % Eosinophils % 2 % Basophils % 1 % Neutrophils # 3.6 (1.3-7.7) k/uL Lymphocytes # 2.1 (1.0-4.8) k/uL Monocytes # 0.3 (0-1.0) k/uL Eosinophils # 0.1 (0-0.7) k/uL Basophils # 0.0 (0-0.2) k/uL Sodium 139 (137-145) mmol/L Potassium 4.4 (3.5-5.1) mmol/L Chloride 110 H (98-107) mmol/L Carbon Dioxide 25 (22-30) mmol/L Anion Gap 4 mmol/L BUN 12 (9-20) mg/dL Creatinine 0.84 (0.66-1.25) mg/dL Est GFR (CKD-EPI)AfAm >90 (>60 ml/min/1.73 sqM) Est GFR (CKD-EPI)NonAf >90 (>60 ml/min/1.73 sqM) Glucose 96 (74-99) mg/dL Calcium 9.2 (8.4-10.2) mg/dL Total Bilirubin 0.6 (0.2-1.3) mg/dL AST 27 (17-59) U/L ALT 29 (4-49) U/L Alkaline Phosphatase 96 (38-126) U/L Creatine Kinase 106 (55-170) U/L Total Protein 6.7 (6.3-8.2) g/dL Albumin 4.5 (3.5-5.0) g/dL Disposition <Candace Jeffery - Last Filed: 02/29/24 16:14> Is patient prescribed a controlled substance at d/c from ED?: No Time of Disposition: 19:10 <Tray Longoria - Last Filed: 02/29/24 22:03> Clinical Impression: Heat exhaustion, Dehydration, Sunburn Disposition: HOME SELF-CARE Condition: Good Instructions (If sedation given, give patient instructions): Dehydration (ED) Referrals: Shira Carver MD [Primary Care Provider] - 1-2 days
[2024-02-29 17:06] LABS: Basophils % (A) 1 %; Eosinophils # (A) 0.1 k/uL (0-0.7); Eosinophils % (A) 2 %; HCT 41.5 % (39.0-53.0); HGB 13.5 gm/dL (13.0-17.5); Lymphocytes # (A) 2.1 k/uL (1.0-4.8); Lymphocytes % (A) 33 %; MCH 29.2 pg (25.0-35.0); MCHC 32.7 g/dL (31.0-37.0); MCV 89.4 fL (80.0-100.0); Monocytes # (A) 0.3 k/uL (0-1.0); Monocytes % (A) 6 %; Neutrophils # (A) 3.6 k/uL (1.3-7.7); Neutrophils % (A) 57 %; Platelet Count 237 k/uL (150-450); RBC 4.64 m/uL (4.30-5.90); RDW 12.6 % (11.5-15.5); WBC 6.2 k/uL (3.8-10.6)
[2024-02-29 17:23] LABS: ALT 29 U/L (4-49); AST 27 U/L (17-59); African American GFR (CKD) >90 (>60 ml/min/1.73 sqM); Albumin 4.5 g/dL (3.5-5.0); Alkaline Phosphatase 96 U/L (38-126); Anion Gap 4 mmol/L; Blood Urea Nitrogen 12 mg/dL (9-20); Calcium 9.2 mg/dL (8.4-10.2); Carbon Dioxide 25 mmol/L (22-30); Chloride 110 mmol/L (98-107); Glucose 96 mg/dL (74-99); Non-African American GFR(CKD) >90 (>60 ml/min/1.73 sqM); Potassium 4.4 mmol/L (3.5-5.1); Sodium 139 mmol/L (137-145); Total Bilirubin 0.6 mg/dL (0.2-1.3); Total Protein 6.7 g/dL (6.3-8.2)
[2024-02-29] MEDS: SODIUM CHLORIDE 0.9% 1,000 ML IV STA ×2 (18:05→18:22)
[2024-02-29 18:53] VITALS: TEMP 98
[2024-02-29 19:22] VITALS: BP 121/87; PULSE 78
== END 2024-02-29 19:20 | disposition home or self-care (01) ==
LOC: EC 15:09
DX: E86.0 Dehydration (principal); L55.9 Sunburn, unspecified; F17.200 Nicotine dependence, unspecified, uncomplicated; X30.XXXA Exposure to excessive natural heat, initial encounter
CPT/HCPCS: 36415; 80053; 82550; 85025; 96360; 99284

== ENCOUNTER 2024-03-24 18:49 | Emergency (ER) | payer OTHER ==
[2024-03-24] MEDS ORDERED: ONDANSETRON 4 MG/2 ML VIAL ONE (20:13)
[2024-03-24] MEDS ORDERED: KETOROLAC 15 MG/ML 1 ML VIAL ONE (20:13)
[2024-03-24] MEDS ORDERED: SODIUM CHLORIDE 0.9% 1,000 ML BAG ONE (20:15)
--- NOTE | 2024-04-23 10:39 | US ---
Site ID [facility] Patient Jed Saez ID [id number] Age/Gender: 23Y, F Order # N/A Procedure US gallbladder Date 03/24/2024 10:23:00 PM INDICATION: Patient age: Female; 23 year old; Reason for study: Abdominal pain COMPARISON: None, please note PACS Production downtime occurred during the radiologist interpretation of these images with limited priors/reports.. TECHNIQUE: Multiple grayscale and color doppler ultrasound images of the right upper abdomen obtained utilizing transabdominal imaging. FINDINGS: PANCREAS: Limited evaluation of the pancreas secondary to bowel. LIVER: The liver demonstrates a normal echotexture. There is no evidence of dilated ducts, cystic structures , or solid mass. Measures a total 0.3 cm. GALLBLADDER: The gallbladder is contracted with stones and attenuation. No significant wall thickening. No pericho lecystic fluid. No shadowing calculi identified. The common duct measures approximately 3 mm. Per son ographer, the sonographic Woodall's sign was negative. RIGHT KIDNEY: The right kidney measures 10.2 x 4.3 x 4.3 cm, without evidence of hydronephrosis, shadowing calculus , or contour deforming solid mass. Renal parenchymal echogenicity is within normal limits. IMPRESSION: No sonographic evidence for acute process.
== END 2024-03-24 22:54 | disposition home or self-care (01) ==
LOC: EC 18:49
DX: R10.9 Unspecified abdominal pain (principal)
CPT/HCPCS: 76705; 96361; 96374; 99284

== ENCOUNTER 2024-03-29 22:38 | Emergency (ER) | payer OTHER ==
[~2024-03-29 22:38] MED LIST: IBUPROFEN 600 MG STARTER PACK 4 TAB BTL ONE; KETOROLAC 15 MG/ML 1 ML VIAL ONE; traMADol 50 MG STARTER PACK 3 TAB BTL ONE
== END 2024-03-30 00:15 | disposition home or self-care (01) ==
LOC: EC 22:38
DX: T22.00XA Burn of unspecified degree of shoulder and upper limb, except wrist and hand, unspecified site, initial encounter (principal)
CPT/HCPCS: 96372; 99283

== ENCOUNTER 2024-05-12 03:34 | Emergency (ER) | payer OTHER ==
[2024-05-12 03:50] VITALS: RESP 16; TEMP 97.8
--- NOTE | 2024-05-12 04:11 | ED ---
URI HPI - General Chief Complaint: Upper Respiratory Infection Stated Complaint: cough SOB Time Seen by Provider: 05/12/24 04:00 Source: patient Mode of arrival: ambulatory Limitations: no limitations - History of Present Illness Initial Comments: 23-year-old male presents emergency department reporting sore throat, nasal congestion, nasal drainage, shortness of breath for the past 2 days. Reports that he was exposed to COVID while at work. He has not taken any home COVID tests. He denies fevers. No nausea vomiting or diarrhea. No other alleviating, precipitating or modifying factors - Related Data Previous Rx's Medication Instructions Recorded ARIPiprazole [Abilify] 10 mg PO DAILY 30 Days #30 tab 03/26/23 Amoxicillin 500 mg PO Q8H 2 Days #6 cap 03/26/23 Nicotine 21Mg/24Hr Patch [Habitrol] 1 patch TRANSDERM DAILY 14 Days 03/26/23 #14 patch Nicotine Gum (Polacrilex) 2 mg BUCCAL Q4HR PRN 180 Days #30 03/26/23 [Nicorette] pieceofgum Ondansetron Odt [Zofran ODT] 8 mg PO BID PRN 14 Days #28 tab 03/26/23 Vortioxetine Hydrobromide 20 mg PO DAILY 30 Days #30 tab 03/26/23 [Trintellix] hydrOXYzine HCL [Atarax] 50 mg PO DAILY PRN 30 Days #60 tab 03/26/23 traZODone HCL [Desyrel] 100 mg PO HS 30 Days #30 tab 03/26/23 Albuterol Inhaler [Ventolin Hfa 2 puff INHALATION QID #8 gm 05/12/24 Inhaler] Benzonatate [Tessalon Perles] 100 mg PO TID PRN #20 capsule 05/12/24 Pseudoephedrine [Sudafed] 30 mg PO Q6H PRN #20 tablet 05/12/24 predniSONE [Deltasone] 20 mg PO BID #10 tab 05/12/24 Allergies Allergy/AdvReac Type Severity Reaction Status Date / Time No Known Allergies Allergy Verified 05/12/24 03:47 Review of Systems ROS Statement: Those systems with pertinent positive or pertinent negative responses have been documented in the HPI. ROS Other: All systems not noted in ROS Statement are negative. Past Medical History Past Medical History: No Reported History Additional Past Medical History / Comment(s): Borderline personality disorder, History of Any Multi-Drug Resistant Organisms: MRSA Date of last positivie culture/infection: 06/02/23 MDRO Source:: Back Past Surgical History: Hernia Repair Past Psychological History: ADD/ADHD, Anxiety, Bipolar, Depression Smoking Status: Current every day smoker Past Alcohol Use History: None Reported Past Drug Use History: Marijuana - Past Family History Father Family Medical History: COPD General Exam Limitations: no limitations General appearance: alert, in no apparent distress Head exam: Present: atraumatic, normocephalic, normal inspection Eye exam: Present: normal appearance, PERRL, EOMI. Absent: scleral icterus, conjunctival injection, periorbital swelling ENT exam: Present: normal exam, mucous membranes moist Neck exam: Present: normal inspection. Absent: tenderness, meningismus, lymphadenopathy Respiratory exam: Present: normal lung sounds bilaterally. Absent: respiratory distress, wheezes, rales, rhonchi, stridor Cardiovascular Exam: Present: regular rate, normal rhythm, normal heart sounds. Absent: systolic murmur, diastolic murmur, rubs, gallop, clicks GI/Abdominal exam: Present: soft, normal bowel sounds. Absent: distended, tenderness, guarding, rebound, rigid Extremities exam: Present: normal inspection, full ROM, normal capillary refill. Absent: tenderness, pedal edema, joint swelling, calf tenderness Back exam: Present: normal inspection Neurological exam: Present: alert, oriented X3, CN II-XII intact Psychiatric exam: Present: normal affect, normal mood Skin exam: Present: warm, dry, intact, normal color. Absent: rash Course Vital Signs 05/12/24 05/12/24 03:48 05:23 Temperature 97.8 F Pulse Rate 80 74 Respiratory 16 16 Rate Blood Pressure 120/74 117/80 O2 Sat by Pulse 98 99 Oximetry Medical Decision Making - Medical Decision Making Was pt. sent in by a medical professional or institution (, PA, RETAIL INTERIOR DESIGNER, urgent care, hospital, or alf...) When possible be specific @ -No Did you speak to anyone other than the patient for history (EMS, parent, family, police, friend...)? What history was obtained from this source @ -No Did you review nursing and triage notes (agree or disagree)? Why? @ -I reviewed and agree with nursing and triage notes Were old charts reviewed (outside hosp., previous admission, EMS record, old EKG, old radiological studies, urgent care reports/EKG's, alf records)? Report findings @ -No old charts were reviewed Differential Diagnosis (chest pain, altered mental status, abdominal pain women, abdominal pain men, vaginal bleeding, weakness, fever, dyspnea, syncope, headache, dizziness, GI bleed, back pain, seizure, CVA, palpatations, mental health, musculoskeletal)? @ -COVID, influenza, RSV, viral syndrome EKG interpreted by me (3pts min.). @ -Not done X-rays interpreted by me (1pt min.). @ -None done CT interpreted by me (1pt min.). @ -None done U/S interpreted by me (1pt. min.). @ -None done What testing was considered but not performed or refused? (CT, X-rays, U/S, labs)? Why? @ -None What meds were considered but not given or refused? Why? @ -None Did you discuss the management of the patient with other professionals (professionals i.e. , PA, RETAIL INTERIOR DESIGNER, lab, RT, psych nurse, social media developer, valet service attendant, teacher, pharmaceutical officer, field case manager)? Give summary @ -No Was smoking cessation discussed for >3mins.? @ -No Was critical care preformed (if so, how long)? @ -No Were there social determinants of health that impacted care today? How? (Homelessness, low income, unemployed, alcoholism, drug addiction, transportation, low edu. Level, literacy, decrease access to med. care, prison, rehab)? @ -No Was there de-escalation of care discussed even if they declined (Discuss DNR or withdrawal of care, Hospice)? DNR status @ -No What co-morbidities impacted this encounter? (DM, HTN, Smoking, COPD, CAD, Cancer, CVA, ARF, Chemo, Hep., AIDS, mental health diagnosis, sleep apnea, morbid obesity)? @ -None Was patient admitted / discharged? Hospital course, mention meds given and route, prescriptions, significant lab abnormalities, going to OR and other pertinent info. @ -Upon arrival patient seen and evaluated in bed 30. Thorough history and physical exam was performed. Patient is swabbed for COVID and strep which is negative. Results are discussed with patient. Patient does have symptoms consistent with upper respiratory infection. He will be placed on Tessalon Perles and prednisone. Prescriptions are written for the patient. He may also take Motrin and Tylenol for any fever control. Follow-up with his doctor return for any new or worsening symptoms Undiagnosed new problem with uncertain prognosis? @ -No Drug Therapy requiring intensive monitoring for toxicity (Heparin, Nitro, Insulin, Cardizem)? @ -No Were any procedures done? @ -No Diagnosis/symptom? @ -Acute cough, suspected viral respiratory infection Acute, or Chronic, or Acute on Chronic? @ -Acute Uncomplicated (without systemic symptoms) or Complicated (systemic symptoms)? @ -Complicated Side effects of treatment? @ -No Exacerbation, Progression, or Severe Exacerbation? @ -No Poses a threat to life or bodily function? How? (Chest pain, [place], [place], pneumonia, PE, COPD, DKA, ARF, appy, cholecystitis, CVA, Diverticulitis, Homicidal, Suicidal, threat to staff... and all critical care pts) @ -No - Lab Data Lab Results 05/12/24 05/12/24 Range/Units 04:18 04:18 SARS-CoV-2 (PCR) Not Detected (Not Detectd) Group A Strep (PCR) NOT DETECTED (Not Detectd) Disposition Clinical Impression: Cough, Respiratory insufficiency, Pharyngitis Disposition: HOME SELF-CARE Condition: Stable Instructions (If sedation given, give patient instructions): Upper Respiratory Infection (ED) Additional Instructions: Please take the medications as directed. Follow-up with your doctor and return for any new or worsening symptoms Prescriptions: predniSONE [Deltasone] 20 mg PO BID #10 tab Pseudoephedrine [Sudafed] 30 mg PO Q6H PRN #20 tablet PRN Reason: Nasal Congestion Benzonatate [Tessalon Perles] 100 mg PO TID PRN #20 capsule PRN Reason: Cough Albuterol Inhaler [Ventolin Hfa Inhaler] 2 puff INHALATION QID #8 gm Is patient prescribed a controlled substance at d/c from ED?: No Referrals: [facility] [Primary Care Provider] - 1-2 days Time of Disposition: 05:17
[2024-05-12] MEDS: IBUPROFEN 600 MG TAB PO STA (05:01)
[2024-05-12] MEDS: predniSONE 20 MG TAB PO STA (05:20)
[2024-05-12 05:25] VITALS: BP 117/80; PULSE 74
== END 2024-05-12 05:23 | disposition home or self-care (01) ==
LOC: EC 03:34
CPT/HCPCS: 87635; 87651; 99283

== ENCOUNTER 2024-11-10 13:34 | Emergency (ER) | payer OTHER ==
--- NOTE | 2024-11-10 14:26 | ED ---
Skin/Abscess/FB HPI - General Chief complaint: Skin/Abscess/Foreign Body Stated complaint: urogenital Time Seen by Provider: 11/10/24 13:46 Source: patient, RN notes reviewed Mode of arrival: ambulatory Limitations: no limitations - History of Present Illness Initial comments: 24-year-old male presents emergency department chief complaint of swelling of left groin area. Patient states that started last couple days states initially tried squeezing what he thought was an ingrown hair or pimple. Patient denies any fevers or chills patient states that he was seen [facility] was given Bactrim. Patient offers no complaints. - Related Data Home Medications Medication Instructions Recorded Confirmed ARIPiprazole [Abilify] 5 mg PO DAILY 11/10/24 11/10/24 Ondansetron Odt [Zofran Odt] 4 mg PO DAILY PRN 11/10/24 11/10/24 Sertraline [Zoloft] 50 mg PO DAILY 11/10/24 11/10/24 Previous Rx's Medication Instructions Recorded Cephalexin [Keflex] 500 mg PO Q6HR #40 cap 11/10/24 Allergies Allergy/AdvReac Type Severity Reaction Status Date / Time No Known Allergies Allergy Verified 11/10/24 14:23 Review of Systems ROS Statement: Those systems with pertinent positive or pertinent negative responses have been documented in the HPI. ROS Other: All systems not noted in ROS Statement are negative. Past Medical History Past Medical History: No Reported History Additional Past Medical History / Comment(s): Borderline personality disorder, History of Any Multi-Drug Resistant Organisms: MRSA Date of last positivie culture/infection: 06/02/23 MDRO Source:: Back Past Surgical History: Hernia Repair Past Psychological History: ADD/ADHD, Anxiety, Bipolar, Depression Smoking Status: Current every day smoker Past Alcohol Use History: None Reported Past Drug Use History: Marijuana - Past Family History Father Family Medical History: COPD General Exam Limitations: no limitations General appearance: alert, in no apparent distress Head exam: Present: atraumatic, normocephalic, normal inspection Neck exam: Present: normal inspection. Absent: tenderness, meningismus, lymphadenopathy Respiratory exam: Present: normal lung sounds bilaterally. Absent: respiratory distress, wheezes, rales, rhonchi, stridor Cardiovascular Exam: Present: regular rate, normal rhythm, normal heart sounds. Absent: systolic murmur, diastolic murmur, rubs, gallop, clicks Skin exam: Present: other (There is erythematous macular area with a centralized over pea-sized nonfluctuant area with central hair follicle) Course Vital Signs 11/10/24 11/10/24 13:36 14:35 Temperature 97.7 F 98.0 F Pulse Rate 96 88 Respiratory 18 20 Rate Blood Pressure 122/74 121/68 O2 Sat by Pulse 97 99 Oximetry Medical Decision Making - Medical Decision Making Was pt. sent in by a medical professional or institution (, AGUEDA, MAIL LIST LIBRARIAN, urgent care, hospital, or detention...) When possible be specific @ -No Did you speak to anyone other than the patient for history (EMS, parent, family, police, friend...)? What history was obtained from this source @ -No Did you review nursing and triage notes (agree or disagree)? Why? @ -I reviewed and agree with nursing and triage notes Were old charts reviewed (outside hosp., previous admission, EMS record, old EKG, old radiological studies, urgent care reports/EKG's, detention records)? Report findings @ -No old charts were reviewed Differential Diagnosis (chest pain, altered mental status, abdominal pain women, abdominal pain men, vaginal bleeding, weakness, fever, dyspnea, syncope, headache, dizziness, GI bleed, back pain, seizure, CVA, palpatations, mental health, musculoskeletal)? @ -Abscess, folliculitis, cellulitis EKG interpreted by me (3pts min.). @ -None X-rays interpreted by me (1pt min.). @ -None done CT interpreted by me (1pt min.). @ -None done U/S interpreted by me (1pt. min.). @ -None done What testing was considered but not performed or refused? (CT, X-rays, U/S, labs)? Why? @ -None What meds were considered but not given or refused? Why? @ -None Did you discuss the management of the patient with other professionals (professionals i.e. AGUEDA Lemus, MAIL LIST LIBRARIAN, lab, RT, psych nurse, social worker psychiatric, sprinkling system installer, t eacher, purchasing officer, case technician)? Give summary @ -No Was smoking cessation discussed for >3mins.? @ -No Was critical care preformed (if so, how long)? @ -No Were there social determinants of health that impacted care today? How? (Homelessness, low income, unemployed, alcoholism, drug addiction, transportation, low edu. Level, literacy, decrease access to med. care, senior care, rehab)? @ -No Was there de-escalation of care discussed even if they declined (Discuss DNR or withdrawal of care, Hospice)? DNR status @ -No What co-morbidities impacted this encounter? (DM, HTN, Smoking, COPD, CAD, [place] r, CVA, ARF, Chemo, Hep., AIDS, mental health diagnosis, sleep apnea, morbid obesity)? @ -None Was patient admitted / discharged? Hospital course, mention meds given and route, prescriptions, significant lab abnormalities, going to OR and other pertinent info. @ -[Denies early follicular abscess, no drainable area patient was started on antibiotics warm compresses Undiagnosed new problem with uncertain prognosis? @ -No Drug Therapy requiring intensive monitoring for toxicity (Heparin, Nitro, Insulin, Cardizem)? @ -No Were any procedures done? @ -No Diagnosis/symptom? @ -Folliculitis/abscess, cellulitis Acute, or Chronic, or Acute on Chronic? @ -Acute Uncomplicated (without systemic symptoms) or Complicated (systemic symptoms)? @ -Uncomplicated Side effects of treatment? @ -No Exacerbation, Progression, or Severe Exacerbation? @ -No Poses a threat to life or bodily function? How? (Chest pain, [place], [place], pneumonia, PE, COPD, DKA, ARF, appy, cholecystitis, CVA, Diverticulitis, Homicidal, [place] icidal, threat to staff... and all critical care pts) @ -No Disposition Clinical Impression: Cellulitis of groin, left, Folliculitis Disposition: HOME SELF-CARE Condition: Stable Instructions (If sedation given, give patient instructions): Abscess (ED) Additional Instructions: Please return to the Emergency Department if symptoms worsen or any other concerns. Prescriptions: Cephalexin [Keflex] 500 mg PO Q6HR #40 cap Is patient prescribed a controlled substance at d/c from ED?: No Referrals: [facility] [NON-STAFF] - 1-2 days (Contact a primary care office to become established with a provider.) None,Stated [Primary Care Provider] - 1-2 days Forms: Area PCPs Time of Disposition: 14:26
[2024-11-10 14:36] VITALS: BP 121/68; PULSE 88; RESP 20; TEMP 98
== END 2024-11-10 14:38 | disposition home or self-care (01) ==
LOC: EC 13:34
DX: L03.314 Cellulitis of groin (principal); L73.9 Follicular disorder, unspecified; F17.200 Nicotine dependence, unspecified, uncomplicated
CPT/HCPCS: 99282

== ENCOUNTER 2024-11-10 23:30 | Emergency (ER) | payer OTHER ==
[2024-11-10 23:41] VITALS: RESP 18
--- NOTE | 2024-11-10 23:55 | ED ---
Recheck HPI - General Chief Complaint: Recheck/Abnormal Lab/Rx Stated Complaint: lump on groin Time Seen by Provider: 11/10/24 23:46 Source: patient, RN notes reviewed Mode of arrival: ambulatory Limitations: no limitations - History of Present Illness Initial Comments: This is a 24-year-old male presenting for left inguinal abscess x 1 day. Patient states he was here earlier today receiving Keflex prior to discharge. Patient states he is already received Bactrim DS and has been taking both antibiotics, stating symptoms and pressure are continuing to worsen. States no attempt has been made to drain abscess. Denies fever, chills, abdominal pain, urinary symptoms, testicular pain. Onset/Timin -: days(s) Initial Visit For: abscess - Related Data Home Medications Medication Instructions Recorded Confirmed ARIPiprazole [Abilify] 5 mg PO DAILY 11/10/24 11/10/24 Ondansetron Odt [Zofran Odt] 4 mg PO DAILY PRN 11/10/24 11/10/24 Sertraline [Zoloft] 50 mg PO DAILY 11/10/24 11/10/24 Previous Rx's Medication Instructions Recorded Cephalexin [Keflex] 500 mg PO Q6HR #40 cap 11/10/24 Ibuprofen [Motrin] 800 mg PO Q8HR PRN #30 tab 11/11/24 Allergies Allergy/AdvReac Type Severity Reaction Status Date / Time No Known Allergies Allergy Verified 11/10/24 23:41 Review of Systems ROS Statement: Those systems with pertinent positive or pertinent negative responses have been documented in the HPI. ROS Other: All systems not noted in ROS Statement are negative. Past Medical History Past Medical History: No Reported History Additional Past Medical History / Comment(s): Borderline personality disorder, History of Any Multi-Drug Resistant Organisms: MRSA Date of last positivie culture/infection: 06/02/23 MDRO Source:: Back Past Surgical History: Hernia Repair Past Psychological History: ADD/ADHD, Anxiety, Bipolar, Depression Smoking Status: Current every day smoker Past Alcohol Use History: None Reported Past Drug Use History: Marijuana - Past Family History Father Family Medical History: COPD General Exam Limitations: no limitations General appearance: alert, in no apparent distress Head exam: Present: atraumatic, normocephalic, normal inspection Eye exam: Present: normal appearance, PERRL, EOMI. Absent: scleral icterus, conjunctival injection, periorbital swelling ENT exam: Present: normal exam, mucous membranes moist Neck exam: Present: normal inspection. Absent: tenderness, meningismus, lymphadenopathy Respiratory exam: Present: normal lung sounds bilaterally. Absent: respiratory distress, wheezes, rales, rhonchi, stridor, accessory muscle use Cardiovascular Exam: Present: regular rate, normal rhythm, normal heart sounds. Absent: systolic murmur, diastolic murmur, rubs, gallop, clicks GI/Abdominal exam: Present: soft, normal bowel sounds, other (Positive 1 cm left inguinal mass/abscess/lymph node with overlying erythema and tenderness. No obvious discharge noted.). Absent: distended, tenderness, guarding, rebound, rigid Extremities exam: Present: normal inspection, full ROM, normal capillary refill. Absent: tenderness, pedal edema, joint swelling, calf tenderness Back exam: Present: normal inspection Neurological exam: Present: alert, oriented X3, CN II-XII intact Psychiatric exam: Present: normal affect, normal mood Skin exam: Present: warm, dry, intact, normal color. Absent: rash Course Vital Signs 11/10/24 11/11/24 23:36 00:42 Temperature 98.0 F 98.9 F Pulse Rate 87 94 Respiratory 18 18 Rate Blood Pressure 127/80 114/74 O2 Sat by Pulse 97 97 Oximetry Procedures - Incision & Drainage Consent Obtained: verbal consent Indication: Increased pressure Site: other (Left inguinal region) Size (cm): 1 Anesthetic Used: lidocaine 1% I&D Cleaning Method: Betadine Sterile Field Used?: No Scalpel Used: #11 Ultrasound used: No Needle Aspiration Performed?: No Irrigation Performed?: Yes Culture Obtained?: Yes Patient Tolerated Procedure: well Medical Decision Making - Medical Decision Making Was pt. sent in by a medical professional or institution (, PA, TUYERE FITTER, urgent care, hospital, or [facility]...) When possible be specific @ -No Did you speak to anyone other than the patient for history (EMS, parent, family, police, friend...)? What history was obtained from this source @ -No Did you review nursing and triage notes (agree or disagree)? Why? @ -I reviewed and agree with nursing and triage notes Were old charts reviewed (outside hosp., previous admission, EMS record, old EKG, old radiological studies, urgent care reports/EKG's, [facility] records)? Report findings @ -No old charts were reviewed Differential Diagnosis (chest pain, altered mental status, abdominal pain women, abdominal pain men, vaginal bleeding, weakness, fever, dyspnea, syncope, he adache, dizziness, GI bleed, back pain, seizure, CVA, palpatations, mental health, musculoskeletal)? @ -Inguinal abscess, cellulitis, lymphadenitis, erysipelas, this is not an exhaustive list EKG interpreted by me (3pts min.). @ -Not done X-rays interpreted by me (1pt min.). @ -None done CT interpreted by me (1pt min.). @ -None done U/S interpreted by me (1pt. min.). @ -None done What testing was considered but not performed or refused? (CT, X-rays, U/S, labs)? Why? @ -None What meds were considered but not given or refused? Why? @ -None Did you discuss the management of the patient with other professionals (professionals i.e. , PA, TUYERE FITTER, lab, RT, psych nurse, social service technician, forensic computer examiner, teacher, classifications officer cc/cm, telephonic case manager)? Give summary @ -No Was smoking cessation discussed for >3mins.? @ -No Was critical care preformed (if so, how long)? @ -No Were there social determinants of health that impacted care today? How? (Homelessness, low income, unemployed, alcoholism, drug addiction, negrete sportation, low edu. Level, literacy, decrease access to med. care, snf, rehab)? @ -No Was there de-escalation of care discussed even if they declined (Discuss DNR or withdrawal of care, Hospice)? DNR status @ -No What co-morbidities impacted this encounter? (DM, HTN, Smoking, COPD, CAD, Cancer, CVA, ARF, Chemo, Hep., AIDS, mental health diagnosis, sleep apnea, morbid obesity)? @ -None Was patient admitted / discharged? Hospital course, mention meds given and route, prescriptions, significant lab abnormalities, going to OR and other pertinent info. @ -Incision and drainage attempted with no expression of blood or purulent material. Possible inflamed lymph node as source of complaint deemed possible. Incision site flushed copiously with sterile water and aerobic wound culture o btained. Dressing placed over incision site. Advised continue previously prescribed antibiotics to completion as well as warm compress to affected area for 10 minutes up to 4 times daily. Motrin 800 sent to patient's pharmacy. Advised follow-up with PCP. Discussed patient with Dr. Watts. Undiagnosed new problem with uncertain prognosis? @ -No Drug Therapy requiring intensive monitoring for toxicity (Heparin, Nitro, Insulin, Cardizem)? @ -No Were any procedures done? @ -Incision and drainage attempted discovery of lymph node and no drainage of blood or purulent material, see procedure note. Diagnosis/symptom? @ -Lymphadenitis Acute, or Chronic, or Acute on Chronic? @ -Acute Uncomplicated (without systemic symptoms) or Complicated (systemic symptoms)? @ -Uncomplicated Side effects of treatment? @ -No Exacerbation, Progression, or Severe Exacerbation? @ -No Poses a threat to life or bodily function? How? (Chest pain, [place], [place], pneumonia, PE, COPD, DKA, ARF, appy, cholecystitis, CVA, Diverticulitis, Homicidal, Suicidal, threat to staff... and all critical care pts) @ -No Disposition Clinical Impression: Lymphadenitis, acute Disposition: HOME SELF-CARE Condition: Good Instructions (If sedation given, give patient instructions): Adenitis (ED) Prescriptions: Ibuprofen [Motrin] 800 mg PO Q8HR PRN #30 tab PRN Reason: Pain Is patient prescribed a controlled substance at d/c from ED?: No Referrals: None,Stated [Primary Care Provider] - 1-2 days Jalil Rivas MD [STAFF PHYSICIAN] - 1-2 days Time of Disposition: 00:36
[2024-11-10] MEDS: LIDOCAINE 1% INJ 10MG/ML (20 ML MDV) SQ ONE (23:58)
[2024-11-11 01:24] VITALS: BP 114/74; PULSE 94; TEMP 98.9
== END 2024-11-11 00:42 | disposition home or self-care (01) ==
LOC: EC 23:30
DX: L04.1 Acute lymphadenitis of trunk (principal); B95.62 Methicillin resistant Staphylococcus aureus infection as the cause of diseases classified elsewhere; F17.200 Nicotine dependence, unspecified, uncomplicated
CPT/HCPCS: 87070; 87205; 87077; 87186; 10060; 99283; J2003

== ENCOUNTER 2024-11-13 01:44 | Emergency (ER) | payer OTHER ==
[2024-11-13 02:01] VITALS: TEMP 98.7
--- NOTE | 2024-11-13 02:28 | ED ---
General Adult HPI - General Chief complaint: Recheck/Abnormal Lab/Rx Stated complaint: abd pain Time Seen by Provider: 11/13/24 02:04 Source: patient, RN notes reviewed Mode of arrival: ambulatory - History of Present Illness Initial comments: 24-year-old male presents to the emergency department for evaluation of left- sided groin abscess. Patient states that he noticed this around 3 days ago. He was evaluated here in the emergency department for this. He states that he was started on Keflex and was supposed to be on Bactrim as well but he has not picked this medication up yet. He does note that he has been taking the Keflex. He states today he noticed some discharge from the area. He did not have this prior. Denies any fever, chills. Denies nausea, vomiting. - Related Data Home Medications Medication Instructions Recorded Confirmed ARIPiprazole [Abilify] 5 mg PO DAILY 11/10/24 11/10/24 Ondansetron Odt [Zofran Odt] 4 mg PO DAILY PRN 11/10/24 11/10/24 Sertraline [Zoloft] 50 mg PO DAILY 11/10/24 11/10/24 Previous Rx's Medication Instructions Recorded Cephalexin [Keflex] 500 mg PO Q6HR #40 cap 11/10/24 Ibuprofen [Motrin] 800 mg PO Q8HR PRN #30 tab 11/11/24 Sulfamethox-Tmp 800-160Mg [Bactrim 1 tab PO Q12HR #14 tab 11/13/24 DS 800-160 mg] Allergies Allergy/AdvReac Type Severity Reaction Status Date / Time No Known Allergies Allergy Verified 11/10/24 23:41 Review of Systems ROS Statement: Those systems with pertinent positive or pertinent negative responses have been documented in the HPI. ROS Other: All systems not noted in ROS Statement are negative. Past Medical History Past Medical History: No Reported History Additional Past Medical History / Comment(s): Borderline personality disorder, History of Any Multi-Drug Resistant Organisms: MRSA Date of last positivie culture/infection: 06/02/23 MDRO Source:: Back Past Surgical History: Hernia Repair Past Psychological History: ADD/ADHD, Anxiety, Bipolar, Depression Smoking Status: Current every day smoker Past Alcohol Use History: None Reported Past Drug Use History: Marijuana - Past Family History Father Family Medical History: COPD General Exam Limitations: no limitations General appearance: alert, in no apparent distress Head exam: Present: atraumatic, normocephalic, normal inspection Eye exam: Present: normal appearance, PERRL, EOMI. Absent: scleral icterus, conjunctival injection, periorbital swelling ENT exam: Present: normal exam, mucous membranes moist Respiratory exam: Present: normal lung sounds bilaterally. Absent: respiratory distress, wheezes, rales, rhonchi, stridor Cardiovascular Exam: Present: regular rate, normal rhythm, normal heart sounds. Absent: systolic murmur, diastolic murmur, rubs, gallop, clicks Extremities exam: Present: normal inspection, full ROM, normal capillary refill. Absent: tenderness, pedal edema, joint swelling, calf tenderness Neurological exam: Present: alert, oriented X3 Psychiatric exam: Present: normal affect, normal mood Skin exam: Present: warm, dry, erythema, other (Abscess formation to the left groin that is draining). Absent: intact, normal color Course Vital Signs 11/13/24 11/13/24 01:55 02:41 Temperature 98.7 F Pulse Rate 64 82 Respiratory 18 17 Rate Blood Pressure 118/62 111/72 O2 Sat by Pulse 100 99 Oximetry Medical Decision Making - Medical Decision Making Was pt. sent in by a medical professional or institution (, PA, MAINTE[employer], urgent care, hospital, or senior care...) When possible be specific @ -No Did you speak to anyone other than the patient for history (EMS, parent, family, police, friend...)? What history was obtained from this source @ -No Did you review nursing and triage notes (agree or disagree)? Why? @ -I reviewed and agree with nursing and triage notes Were old charts reviewed (outside hosp., previous admission, EMS record, old EKG, old radiological studies, urgent care reports/EKG's, senior care records)? Report findings @ -No old charts were reviewed Differential Diagnosis (chest pain, altered mental status, abdominal pain women, abdominal pain men, vaginal bleeding, weakness, fever, dyspnea, syncope, headache, dizziness, GI bleed, back pain, seizure, CVA, palpatations, mental health, musculoskeletal)? @ -Abscess, cellulitis, lymphadenopathy, this list is not all-inclusive EKG interpreted by me (3pts min.). @ -None X-rays interpreted by me (1pt min.). @ -None done CT interpreted by me (1pt min.). @ -None done U/S interpreted by me (1pt. min.). @ -None done What testing was considered but not performed or refused? (CT, X-rays, U/S, labs)? Why? @ -None What meds were considered but not given or refused? Why? @ -None Did you discuss the management of the patient with other professionals (professionals i.e. , PA, [employer], lab, RT, psych nurse, social sciences research scientist, dumpman, teacher, licensing officer, pillowcase maker)? Give summary @ -No Was smoking cessation discussed for >3mins.? @ -No Was critical care preformed (if so, how long)? @ -No Were there social determinants of health that impacted care today? How? (Homelessness, low income, unemployed, alcoholism, drug addiction, transportation, low edu. Level, literacy, decrease access to med. care, halfway, rehab)? @ -No Was there de-escalation of care discussed even if they declined (Discuss DNR or withdrawal of care, Hospice)? DNR status @ -No What co-morbidities impacted this encounter? (DM, HTN, Smoking, COPD, CAD, Cancer, CVA, ARF, Chemo, Hep., AIDS, mental health diagnosis, sleep apnea, morbid obesity)? @ -None Was patient admitted / discharged? Hospital course, mention meds given and route, prescriptions, significant lab abnormalities, going to OR and other pertinent info. @ -Discharge. Patient presented to the emergency department for groin redness and discharge. This been going on for 3 days. Has been taking Keflex. He is also prescribed Bactrim but he has not been taking this. He his wound culture preliminary was Staph aureus. I advised him that he should be taking Bactrim as well. He was given initial dose of Bactrim in the emergency department. I sent over another prescription for this medication. He will be discharged home. He is understanding agreeable with this plan. Patient stable at time of discharge. Case discussed with Dr. Hurt. Undiagnosed new problem with uncertain prognosis? @ -No Drug Therapy requiring intensive monitoring for toxicity (Heparin, Nitro, Insulin, Cardizem)? @ -No Were any procedures done? @ -No Diagnosis/symptom? @ -Abscess Acute, or Chronic, or Acute on Chronic? @ -Acute Uncomplicated (without systemic symptoms) or Complicated (systemic symptoms)? @ -Uncomplicated Side effects of treatment? @ -No Exacerbation, Progression, or Severe Exacerbation? @ -No Poses a threat to life or bodily function? How? (Chest pain, USA, MD, pneumonia, PE, COPD, DKA, ARF, appy, cholecystitis, CVA, Diverticulitis, Homicidal, Suicidal, threat to staff... 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 Follow up with your primary care provider. Return to the emergency department for new or worsening symptoms. Prescriptions: Sulfamethox-Tmp 800-160Mg [Bactrim DS 800-160 mg] 1 tab PO Q12HR #14 tab Is patient prescribed a controlled substance at d/c from ED?: No Referrals: None,Stated [Primary Care Provider] - 1-2 days
[2024-11-13] MEDS: SULFAMETHOX-TMP 800-160MG 1 EACH TAB PO STA (02:38)
[2024-11-13 02:43] VITALS: BP 111/72; PULSE 82; RESP 17
== END 2024-11-13 02:47 | disposition home or self-care (01) ==
LOC: EC 01:44
DX: L02.214 Cutaneous abscess of groin (principal); F17.200 Nicotine dependence, unspecified, uncomplicated
CPT/HCPCS: 99283

== ENCOUNTER 2024-11-19 00:43 | Emergency (ER) | payer OTHER ==
[2024-11-19 00:48] VITALS: RESP 18; TEMP 98.3
--- NOTE | 2024-11-19 01:07 | ED ---
Recheck HPI - General Chief Complaint: Recheck/Abnormal Lab/Rx Stated Complaint: MRSA Time Seen by Provider: 11/19/24 00:51 Source: patient, RN notes reviewed Mode of arrival: ambulatory Limitations: no limitations - History of Present Illness Initial Comments: This is a 24-year-old male who presents to the emergency department for an abscess. Patient states that he been dealing with an abscess in his groin and the culture came back positive for MRSA. He is taking both Bactrim and Keflex and states that the area is healing well. However, states that he feels like he is ill. He states that he cannot think right and cannot keep anything down and is concerned that the infection spread to his bloodstream. - Related Data Home Medications Medication Instructions Recorded Confirmed ARIPiprazole [Abilify] 5 mg PO DAILY 11/10/24 11/10/24 Ondansetron Odt [Zofran Odt] 4 mg PO DAILY PRN 11/10/24 11/10/24 Sertraline [Zoloft] 50 mg PO DAILY 11/10/24 11/10/24 Previous Rx's Medication Instructions Recorded Cephalexin [Keflex] 500 mg PO Q6HR #40 cap 11/10/24 Ibuprofen [Motrin] 800 mg PO Q8HR PRN #30 tab 11/11/24 Sulfamethox-Tmp 800-160Mg [Bactrim 1 tab PO Q12HR #14 tab 11/13/24 DS 800-160 mg] Allergies Allergy/AdvReac Type Severity Reaction Status Date / Time No Known Allergies Allergy Verified 11/19/24 00:49 Review of Systems ROS Statement: Those systems with pertinent positive or pertinent negative responses have been documented in the HPI. ROS Other: All systems not noted in ROS Statement are negative. Past Medical History Past Medical History: No Reported History Additional Past Medical History / Comment(s): Borderline personality disorder, History of Any Multi-Drug Resistant Organisms: MRSA Date of last positivie culture/infection: 11/13/2024 MDRO Source:: groin Past Surgical History: Hernia Repair Past Psychological History: ADD/ADHD, Anxiety, Bipolar, Depression Smoking Status: Current every day smoker Past Alcohol Use History: None Reported Past Drug Use History: Marijuana - Past Family History Father Family Medical History: COPD General Exam Limitations: no limitations General appearance: alert, in no apparent distress Head exam: Present: atraumatic, normocephalic, normal inspection Respiratory exam: Present: normal lung sounds bilaterally. Absent: respiratory distress, wheezes, rales, rhonchi, stridor Cardiovascular Exam: Present: regular rate, normal rhythm GI/Abdominal exam: Present: other (Small well-healing lesion in the left groin without any tenderness or drainage) Neurological exam: Present: alert, oriented X3, CN II-XII intact Psychiatric exam: Present: normal affect, normal mood Course Vital Signs 11/19/24 00:44 Temperature 98.3 F Pulse Rate 84 Respiratory 18 Rate Blood Pressure 129/78 O2 Sat by Pulse 96 Oximetry Medical Decision Making - Medical Decision Making This is a 24 year old male who presents to the emergency department for an abscess and feeling unwell. Was pt. sent in by a medical professional or institution? @ -No Did you speak to anyone other than the patient for history? @ -No Did you review nursing and triage notes? @ -Yes, and I agree, it is accurate with regards to the patient's symptoms. Were old charts reviewed? @ -Gram stain from 11/11/24 that was positive for MRSA. Differential Diagnosis? @ -Abscess, cellulitis, abrasion, lymph node, this is not meant to be an all- inclusive list. EKG interpreted by me (3pts min.)? @ -Not obtained X-rays interpreted by me (1pt min.)? @ -Not obtained CT interpreted by me (1pt min.)? @ -Not obtained U/S interpreted by me (1pt. min.)? @ -Not obtained What testing was considered but not performed? (CT, X-rays, U/S, labs)? Why? @ -None What meds were considered but not given? Why? @ -None Did you discuss the management of the patient with other professionals? @ -No Did you reconcile home meds? @ -No Was smoking cessation discussed for >3mins.? @ -No Was critical care preformed (if so, how long)? @ -No Were there social determinants of health that impacted care today? How? (Homelessness, low income, unemployed, alcoholism, drug addiction, transportation, low edu. Level, literacy, decrease access to med. care, usp, rehab)? @ -No Was there de-escalation of care discussed even if they declined? (Discuss DNR or withdrawal of care, Hospice)? @ -No What co-morbidities impacted this encounter? (DM, HTN, Smoking, COPD, CAD, Cancer, CVA, Hep., AIDS, mental health diagnosis, sleep apnea, morbid obesity)? @ -None Was patient admitted / discharged? @ -Discharged. Lab work demonstrates signs of microcytic anemia and is otherwise unremarkable. Urinalysis negative for signs of infection. Wound culture from 11/11 did return positive for MRSA. However, the lesion is healing very well and did not appear to have any residual infection. Findings of anemia discussed with the patient in that this can make him feel ill and affect his mood as he has been feeling. Patient advised that he had been diagnosed with iron deficiency in the past but has not followed up with it or been treated for it. Advised he resume [id number] iron supplements. States that he has an upcoming appointment with Dr. Caballero's office sometime in the future. Advised to make sure he follows up on that for reevaluation of symptoms and follow- through regarding the anemia. Patient discharged home in stable condition. Case discussed with ED attending Dr. Torres. Return precautions reviewed in depth, the patient is instructed to return to the emergency department with any new, worsening, or concerning symptoms. Patient verbalized understanding. Undiagnosed new problem with uncertain prognosis? @ -None Drug Therapy requiring intensive monitoring for toxicity (Heparin, Nitro, Insulin, Cardizem)? @ -None Were any procedures done? @ -None Diagnosis/symptom? @ -MRSA infection, anemia Acute, or Chronic, or Acute on Chronic? @ -Acute Uncomplicated (without systemic symptoms) or Complicated (systemic symptoms)? @ -Uncomplicated Side effects of treatment? @ -None Exacerbation, Progression, or Severe Exacerbation] @ -Not applicable Poses a threat to life or bodily function? @ -No - Lab Data Result diagrams: 11/19/24 01:11/19/24 01:26 Lab Results 11/19/24 11/19/24 11/19/24 Range/Units 01: 01: 01: WBC 6.72 (4.50-10.00) 10*3/uL RBC 4.03 L (4.40-5.60) 10*6/uL Hgb 9.5 L (13.0-17.0) g/dL Hct 29.5 L (39.6-50.0) % MCV 73.2 L (80.0-97.0) fL MCH 23.6 L (27.0-32.0) pg MCHC 32.2 (32.0-37.0) g/dL Plt Count 368 (140-440) 10*3/uL MPV 9.9 (9.5-12.2) fL Immature Gran % (Auto) 0.1 % Neutrophils % 50.3 % Lymphocytes % 38.2 % Monocytes % 10.1 % Eosinophils % 0.4 % Basophils % 0.9 % Immature Gran # 0.01 (0.00-0.04) 10*3/uL Neutrophils # 3.37 (1.80-7.70) 10*3/uL Lymphocytes # 2.57 (0.90-5.00) 10*3/uL Monocytes # 0.68 (0.20-1.00) 10*3/uL Eosinophils # 0.03 L (0.04-0.35) 10*3/uL Basophils # 0.06 (0.00-0.10) 10*3/uL Sodium 136 L (137-145) mmol/L Potassium 4.2 (3.5-5.1) mmol/L Chloride 104 (98-107) mmol/L Carbon Dioxide 21 L (22-30) mmol/L Anion Gap 11 mmol/L BUN 14 (9-20) mg/dL Creatinine 1.44 H (0.66-1.25) mg/dL Est GFR (CKD-EPI)AfAm 77 (>60 ml/min/1.73 sqM) Est GFR (CKD-EPI)NonAf 67 (>60 ml/min/1.73 sqM) Glucose 93 (74-99) mg/dL Plasma Lactic Acid Yung 0.8 (0.7-2.0) mmol/L Calcium 9.8 (8.4-10.2) mg/dL Total Bilirubin 0.5 (0.2-1.3) mg/dL AST 36 (17-59) U/L ALT 21 (4-49) U/L Alkaline Phosphatase 91 (38-126) U/L C-Reactive Protein 0.6 (<1.0) mg/dL Total Protein 6.8 (6.3-8.2) g/dL Albumin 4.5 (3.5-5.0) g/dL Urine Color Urine Appearance (Clear) Urine pH (5.0-8.0) Ur Specific Floyd (1.001-1.035) Urine Protein (Negative) Urine Glucose (UA) (Negative) Urine Ketones (Negative) Urine Blood (Negative) Urine Nitrite (Negative) Urine Bilirubin (Negative) Urine Urobilinogen (<2.0) mg/dL Ur Leukocyte Esterase (Negative) Urine RBC (0-5) /hpf Urine WBC (0-5) /hpf Calcium Oxalate Crystal (None) /hpf Hyaline Casts (0-2) /lpf Urine Mucus (None) /hpf Urine Opiates Screen (NotDetected) Ur Oxycodone Screen (NotDetected) Urine Methadone Screen (NotDetected) Ur Barbiturates Screen (NotDetected) U Tricyclic Antidepress (NotDetected) Ur Phencyclidine Scrn (NotDetected) Ur Amphetamines Screen (NotDetected) U Methamphetamines Scrn (NotDetected) U Benzodiazepines Scrn (NotDetected) Urine Cocaine Screen (NotDetected) U Marijuana (THC) Screen (NotDetected) 11/19/24 Range/Units 01:26 WBC (4.50-10.00) 10*3/uL RBC (4.40-5.60) 10*6/uL Hgb (13.0-17.0) g/dL Hct (39.6-50.0) % MCV (80.0-97.0) fL MCH (27.0-32.0) pg MCHC (32.0-37.0) g/dL Plt Count (140-440) 10*3/uL MPV (9.5-12.2) fL Immature Gran % (Auto) % Neutrophils % % Lymphocytes % % Monocytes % % Eosinophils % % Basophils % % Immature Gran # (0.00-0.04) 10*3/uL Neutrophils # (1.80-7.70) 10*3/uL Lymphocytes # (0.90-5.00) 10*3/uL Monocytes # (0.20-1.00) 10*3/uL Eosinophils # (0.04-0.35) 10*3/uL Basophils # (0.00-0.10) 10*3/uL Sodium (137-145) mmol/L Potassium (3.5-5.1) mmol/L Chloride (98-107) mmol/L Carbon Dioxide (22-30) mmol/L Anion Gap mmol/L BUN (9-20) mg/dL Creatinine (0.66-1.25) mg/dL Est GFR (CKD-EPI)AfAm (>60 ml/min/1.73 sqM) Est GFR (CKD-EPI)NonAf (>60 ml/min/1.73 sqM) Glucose (74-99) mg/dL Plasma Lactic Acid Yung (0.7-2.0) mmol/L Calcium (8.4-10.2) mg/dL Total Bilirubin (0.2-1.3) mg/dL AST (17-59) U/L ALT (4-49) U/L Alkaline Phosphatase (38-126) U/L C-Reactive Protein (<1.0) mg/dL Total Protein (6.3-8.2) g/dL Albumin (3.5-5.0) g/dL Urine Color Yellow Urine Appearance Turbid (Clear) Urine pH 5.5 (5.0-8.0) Ur Specific Floyd 1.033 (1.001-1.035) Urine Protein Trace H (Negative) Urine Glucose (UA) Negative (Negative) Urine Ketones Negative (Negative) Urine Blood Negative (Negative) Urine Nitrite Negative (Negative) Urine Bilirubin Negative (Negative) Urine Urobilinogen 2.0 (<2.0) mg/dL Ur Leukocyte Esterase Negative (Negative) Urine RBC <1 (0-5) /hpf Urine WBC 1 (0-5) /hpf Calcium Oxalate Crystal Many H (None) /hpf Hyaline Casts 10 H (0-2) /lpf Urine Mucus Occasional H (None) /hpf Urine Opiates Screen Not Detected (NotDetected) Ur Oxycodone Screen Not Detected (NotDetected) Urine Methadone Screen Not Detected (NotDetected) Ur Barbiturates Screen Not Detected (NotDetected) U Tricyclic Antidepress Not Detected (NotDetected) Ur Phencyclidine Scrn Not Detected (NotDetected) Ur Amphetamines Screen Not Detected (NotDetected) U Methamphetamines Scrn Not Detected (NotDetected) U Benzodiazepines Scrn Detected H (NotDetected) Urine Cocaine Screen Not Detected (NotDetected) U Marijuana (THC) Screen Detected H (NotDetected) Disposition Clinical Impression: Anemia, MRSA (methicillin resistant staph aureus) culture positive, Iron deficiency anemia Disposition: HOME SELF-CARE Instructions (If sedation given, give patient instructions): Iron Rich Diet (ED), Anemia (ED) Additional Instructions: Return to the emergency department with any new, worsening, or concerning symptoms. Begin taking any [id number] iron supplements and follow the directions on the bottle. You can take any of the ones that are offered at the store, there is not a specific one you need to look out for. Make sure you follow-up with Dr. Caballero's office. You will need repeat blood work done to monitor the anemia and make sure it is starting to improve. Is patient prescribed a controlled substance at d/c from ED?: No Referrals: None,Stated [Primary Care Provider] - 1-2 days Braxton Caballero MD [STAFF PHYSICIAN] - 1-2 days Time of Disposition: 02:42
[2024-11-19 01:33] LABS: Basophils # (A) 0.06 10*3/uL (0.00-0.10); Basophils % (A) 0.9 %; Eosinophils # (A) 0.03 10*3/uL (0.04-0.35); Eosinophils % (A) 0.4 %; HCT 29.5 % (39.6-50.0); HGB 9.5 g/dL (13.0-17.0); Lymphocytes # (A) 2.57 10*3/uL (0.90-5.00); Lymphocytes % (A) 38.2 %; MCH 23.6 pg (27.0-32.0); MCHC 32.2 g/dL (32.0-37.0); MCV 73.2 fL (80.0-97.0); Mean Platelet Volume 9.9 fL (9.5-12.2); Monocytes # (A) 0.68 10*3/uL (0.20-1.00); Monocytes % (A) 10.1 %; Neutrophils # (A) 3.37 10*3/uL (1.80-7.70); Neutrophils % (A) 50.3 %; Platelet Count 368 10*3/uL (140-440); RBC 4.03 10*6/uL (4.40-5.60); RDW 15.5 % (11.5-14.5); WBC 6.72 10*3/uL (4.50-10.00)
[2024-11-19] MEDS: LACTATED RINGERS 1,000 ML IV SCH (01:48)
[2024-11-19 01:50] LABS: ALT 21 U/L (4-49); AST 36 U/L (17-59); African American GFR (CKD) 77 (>60 ml/min/1.73 sqM); Albumin 4.5 g/dL (3.5-5.0); Alkaline Phosphatase 91 U/L (38-126); Anion Gap 11 mmol/L; Blood Urea Nitrogen 14 mg/dL (9-20); C Reactive Protein 0.6 mg/dL (<1.0); Calcium 9.8 mg/dL (8.4-10.2); Carbon Dioxide 21 mmol/L (22-30); Chloride 104 mmol/L (98-107); Glucose 93 mg/dL (74-99); Non-African American GFR(CKD) 67 (>60 ml/min/1.73 sqM); Potassium 4.2 mmol/L (3.5-5.1); Sodium 136 mmol/L (137-145); Total Bilirubin 0.5 mg/dL (0.2-1.3); Total Protein 6.8 g/dL (6.3-8.2)
[2024-11-19 02:00] LABS: Appearance,Urine Turbid (Clear); Bilirubin,Urine Negative (Negative); Blood,Urine Negative (Negative); Calcium Oxalate Crystals,Urine Many /hpf; Color,Urine Yellow; Glucose,Urine (UA) Negative (Negative); Hyaline Casts,Urine 10 /lpf (0-2); Ketones,Urine Negative (Negative); Leukocyte Esterase,Urine Negative (Negative); Mucus,Urine Occasional /hpf; Nitrite,Urine Negative (Negative); PH, Urine 5.5 (5.0-8.0); Protein,Urine Trace (Negative); RBC,Urine <1 /hpf (0-5); Specific Gravity,Urine 1.033 (1.001-1.035); WBC,Urine 1 /hpf (0-5)
[2024-11-19 02:35] LABS: Amphetamine Screen,Urine Not Detected (NotDetected); Barbiturate Screen,Urine Not Detected (NotDetected); Benzodiazepines Screen,Urine Detected (NotDetected); Cocaine Screen,Urine Not Detected (NotDetected); Methadone Screen, Urine Not Detected (NotDetected); Opiate Screen,Urine Not Detected (NotDetected); Oxycodone Screen, Urine Not Detected (NotDetected); Phencyclidine Screen,Urine Not Detected (NotDetected); Tricyclic Antidepressant,Urine Not Detected (NotDetected); Urn Cannabinoid Scrn Detected (NotDetected)
[2024-11-19 02:54] VITALS: BP 127/71; PULSE 60
== END 2024-11-19 02:54 | disposition home or self-care (01) ==
LOC: EC 00:43
DX: A49.02 Methicillin resistant Staphylococcus aureus infection, unspecified site (principal); D50.9 Iron deficiency anemia, unspecified; F17.200 Nicotine dependence, unspecified, uncomplicated
CPT/HCPCS: 36415; 80053; 80306; 81001; 83605; 85025; 86140; 96360; 99283

== ENCOUNTER 2024-11-22 23:08 | Emergency (ER) | payer OTHER ==
[2024-11-22 23:16] VITALS: BP 125/73; PULSE 76; RESP 18; TEMP 97.9
--- NOTE | 2024-11-22 23:47 | ED ---
ENT HPI - General Chief complaint: Dental/Oral Stated complaint: mouth pain Time Seen by Provider: 11/22/24 23:21 Source: patient, RN notes reviewed Mode of arrival: ambulatory Limitations: no limitations - History of Present Illness Initial comments: This is a 24-year-old male with history of poor dentition presenting for dental pain (05/15) x 3 days. Patient states pain is scarring throughout his mouth. States he recently broke his right upper lateral incisor while chewing on taffy. Patient endorses going to [facility] last night for dental pain, receiving Toradol with minimal relief. Endorses prior use of ibuprofen, Tylenol, Aleve with minimal relief. States he has a dental appointment scheduled for 12/18/2024. Denies fever, chills, airway swelling, elevation of floor of mouth, purulent discharge, trismus. MD complaint: tooth pain Onset/Timin -: days(s) Severity scale (1-10): 10 Consistency: constant Context- Dental: history of dental caries, poor dental care - Related Data Home Medications Medication Instructions Recorded Confirmed ARIPiprazole [Abilify] 5 mg PO DAILY 11/10/24 11/10/24 Ondansetron Odt [Zofran Odt] 4 mg PO DAILY PRN 11/10/24 11/10/24 Sertraline [Zoloft] 50 mg PO DAILY 11/10/24 11/10/24 Previous Rx's Medication Instructions Recorded Cephalexin [Keflex] 500 mg PO Q6HR #40 cap 11/10/24 Ibuprofen [Motrin] 800 mg PO Q8HR PRN #30 tab 11/11/24 Sulfamethox-Tmp 800-160Mg [Bactrim 1 tab PO Q12HR #14 tab 11/13/24 DS 800-160 mg] Amoxic-Pot Clav 875-125Mg 1 tab PO BID 1 Days #20 tab 11/22/24 [Augmentin 875-125] Chlorhexidine Gluconate [Periogard] 5 ml MUCOUS MEM DAILY #473 ml 11/22/24 Allergies Allergy/AdvReac Type Severity Reaction Status Date / Time No Known Allergies Allergy Verified 11/22/24 23:16 Review of Systems ROS Statement: Those systems with pertinent positive or pertinent negative responses have been documented in the HPI. ROS Other: All systems not noted in ROS Statement are negative. Past Medical History Past Medical History: No Reported History Additional Past Medical History / Comment(s): Borderline personality disorder, History of Any Multi-Drug Resistant Organisms: MRSA Date of last positivie culture/infection: 11/13/2024 MDRO Source:: groin Past Surgical History: Hernia Repair Past Psychological History: ADD/ADHD, Anxiety, Bipolar, Depression Smoking Status: Current every day smoker Past Alcohol Use History: None Reported Past Drug Use History: Marijuana - Past Family History Father Family Medical History: COPD General Exam Limitations: no limitations General appearance: alert, in no apparent distress Head exam: Present: atraumatic, normocephalic, normal inspection Eye exam: Present: normal appearance, PERRL, EOMI. Absent: scleral icterus, conjunctival injection, periorbital swelling ENT exam: Present: mucous membranes dry, other (Extremely poor dentition with multiple missing/damaged/cracked teeth. No obvious periapical abscess, area of erythema) Neck exam: Present: normal inspection. Absent: tenderness, meningismus, lymphadenopathy Respiratory exam: Present: normal lung sounds bilaterally. Absent: respiratory distress, wheezes, rales, rhonchi, stridor Cardiovascular Exam: Present: regular rate, normal rhythm, normal heart sounds. Absent: systolic murmur, diastolic murmur, rubs, gallop, clicks GI/Abdominal exam: Present: soft, normal bowel sounds. Absent: distended, tenderness, guarding, rebound, rigid Extremities exam: Present: normal inspection, full ROM, normal capillary refill. Absent: tenderness, pedal edema, joint swelling, calf tenderness Back exam: Present: normal inspection Neurological exam: Present: alert, oriented X3, CN II-XII intact Psychiatric exam: Present: normal affect, normal mood Skin exam: Present: warm, dry, intact, normal color. Absent: rash Course Vital Signs 11/22/24 23:12 Temperature 97.9 F Pulse Rate 76 Respiratory 18 Rate Blood Pressure 125/73 O2 Sat by Pulse 97 Oximetry Medical Decision Making - Medical Decision Making Was pt. sent in by a medical professional or institution (, PA, PRODUCT EVANGELIST, urgent care, hospital, or fci...) When possible be specific @ -No Did you speak to anyone other than the patient for history (EMS, parent, family, police, friend...)? What history was obtained from this source @ -No Did you review nursing and triage notes (agree or disagree)? Why? @ -I reviewed and agree with nursing and triage notes Were old charts reviewed (outside hosp., previous admission, EMS record, old EKG, old radiological studies, urgent care reports/EKG's, fci records)? Report findings @ -No old charts were reviewed Differential Diagnosis (chest pain, altered mental status, abdominal pain women, abdominal pain men, vaginal bleeding, weakness, fever, dyspnea, syncope, headache, dizziness, GI bleed, back pain, seizure, CVA, palpatations, mental health, musculoskeletal)? @ -Periapical abscess, gingivitis, ANUG, dental trauma, Fady's angina, this is not an exhaustive list EKG interpreted by me (3pts min.). @ -Not done X-rays interpreted by me (1pt min.). @ -None done CT interpreted by me (1pt min.). @ -None done U/S interpreted by me (1pt. min.). @ -None done What testing was considered but not performed or refused? (CT, X-rays, U/S, labs)? Why? @ -None What meds were considered but not given or refused? Why? @ -Patient initially offered and accepted viscous lidocaine, supraperiosteal block and IM Toradol. Patient then took p.o. [place] but declined all other medications and interventions. Did you discuss the management of the patient with other professionals (professionals i.e. , PA, PRODUCT EVANGELIST, lab, RT, psych nurse, case management social worker, dot compliance specialist, teacher, structural engineering drafting officer, major case detective)? Give summary @ -No Was smoking cessation discussed for >3mins.? @ -No Was critical care preformed (if so, how long)? @ -No Were there social determinants of health that impacted care today? How? (Homelessness, low income, unemployed, alcoholism, drug addiction, transportation, low edu. Level, literacy, decrease access to med. care, alf, rehab)? @ -Decreased access to dental care Was there de-escalation of care discussed even if they declined (Discuss DNR or withdrawal of care, Hospice)? DNR status @ -No What co-morbidities impacted this encounter? (DM, HTN, Smoking, COPD, CAD, Cancer, CVA, ARF, Chemo, Hep., AIDS, mental health diagnosis, sleep apnea, morbid obesity)? @ -None Was patient admitted / discharged? Hospital course, mention meds given and route, prescriptions, significant lab abnormalities, going to OR and other pertinent info. @ -Patient offered and provided IM Toradol, viscous lidocaine, p.o. [place] and Marcaine for supraperiosteal block. Patient would later declined Toradol, lidocaine and Marcaine injection, taking the p.o. [place] and stating he did not want any other pain medication or pain management procedures and that he was ready to be discharged. Augmentin and chlorhexidine mouthwash sent to patient's pharmacy. Advised follow-up with dentist/pain management clinic for ongoing management of dental pain. Discussed patient with Dr. Epps. Undiagnosed new problem with uncertain prognosis? @ -No Drug Therapy requiring intensive monitoring for toxicity (Heparin, Nitro, Ins ulin, Cardizem)? @ -No Were any procedures done? @ -No Diagnosis/symptom? @ -Dental fracture, increased risk of periodontal infection Acute, or Chronic, or Acute on Chronic? @ -Acute on chronic Uncomplicated (without systemic symptoms) or Complicated (systemic symptoms)? @ -Uncomplicated Side effects of treatment? @ -No Exacerbation, Progression, or Severe Exacerbation? @ -No Poses a threat to life or bodily function? How? (Chest pain, [place], [place], pneumonia, PE, COPD, DKA, ARF, appy, cholecystitis, CVA, Diverticulitis, Homicidal, Suicidal, threat to staff... and all critical care pts) @ -No Disposition Clinical Impression: Fracture of tooth, Dental caries Disposition: HOME SELF-CARE Condition: Good Instructions (If sedation given, give patient instructions): Toothache (ED) Prescriptions: Amoxic-Pot Clav 875-125Mg [Augmentin 875-125] 1 tab PO BID 1 Days #20 tab Chlorhexidine Gluconate [Periogard] 5 ml MUCOUS MEM DAILY #473 ml Is patient prescribed a controlled substance at d/c from ED?: No Referrals: None,Stated [REFERRING] - 1-2 days Mirian Saleem DDS [STAFF PHYSICIAN] - 1-2 days Oliverio Rutherford DMD [STAFF PHYSICIAN] - 1-2 days Time of Disposition: 00:14
[2024-11-22] MEDS: LIDOCAINE VISCOUS 2% 15 ML CUP MUCOUS MEM ONE (23:58)
[2024-11-22] MEDS: HYDROcodone/APAP 7.5-325MG 1 EACH TAB PO ONE (23:58)
[2024-11-22] MEDS: KETOROLAC 15 MG/ML 1 ML VIAL IM STA (23:59)
[2024-11-22] MEDS: BUPIVACAINE (PF) 0.25% 30 ML VIAL SQ ONE (23:59)
== END 2024-11-23 00:29 | disposition home or self-care (01) ==
LOC: EC 23:08
DX: K03.81 Cracked tooth (principal); K02.9 Dental caries, unspecified; F17.200 Nicotine dependence, unspecified, uncomplicated
CPT/HCPCS: 99282; J1885

== ENCOUNTER 2025-02-02 23:26 | Emergency (ER) | payer OTHER ==
[2025-02-03 00:15] VITALS: TEMP 98.1
--- NOTE | 2025-02-03 00:22 | ED ---
Lower Extremity Injury HPI - General Chief Complaint: Extremity Injury, Lower Stated Complaint: hip pain Time Seen by Provider: 02/03/25 00:22 Source: patient Mode of arrival: ambulatory Limitations: no limitations - History of Present Illness Initial Comments: 24-year-old male presenting chief complaint of left hip pain. Has been ongoing for 1 month. States that he came in tonight because he was unable to sleep due to the pain. Denies any injury or trauma. No back pain. He is still able to ambulate. No numbness or tingling. No fever or chills. No nausea or vomiting. - Related Data Home Medications Medication Instructions Recorded Confirmed ARIPiprazole [Abilify] 5 mg PO DAILY 11/10/24 11/10/24 Ondansetron Odt [Zofran Odt] 4 mg PO DAILY PRN 11/10/24 11/10/24 Sertraline [Zoloft] 50 mg PO DAILY 11/10/24 11/10/24 Previous Rx's Medication Instructions Recorded Cephalexin [Keflex] 500 mg PO Q6HR #40 cap 11/10/24 Ibuprofen [Motrin] 800 mg PO Q8HR PRN #30 tab 11/11/24 Sulfamethox-Tmp 800-160Mg [Bactrim 1 tab PO Q12HR #14 tab 11/13/24 DS 800-160 mg] Amoxic-Pot Clav 875-125Mg 1 tab PO BID 1 Days #20 tab 11/22/24 [Augmentin 875-125] Chlorhexidine Gluconate [Periogard] 5 ml MUCOUS MEM DAILY #473 ml 11/22/24 Allergies Allergy/AdvReac Type Severity Reaction Status Date / Time No Known Allergies Allergy Verified 02/03/25 00:12 Review of Systems ROS Statement: Those systems with pertinent positive or pertinent negative responses have been documented in the HPI. ROS Other: All systems not noted in ROS Statement are negative. Past Medical History Past Medical History: No Reported History Additional Past Medical History / Comment(s): Borderline personality disorder, History of Any Multi-Drug Resistant Organisms: MRSA Date of last positivie culture/infection: 11/13/2024 MDRO Source:: groin Past Surgical History: Hernia Repair Past Psychological History: ADD/ADHD, Anxiety, Bipolar, Depression Smoking Status: Vaper Past Alcohol Use History: None Reported Past Drug Use History: Marijuana - Past Family History Father Family Medical History: COPD General Exam - General Exam Comments Initial Comments: Visual Physical Exam Vital signs reviewed General: Well-appearing, nontoxic, no acute distress. Head: Normocephalic, atraumatic Eyes: PERRLA, EOMI ENT: Airway patent Chest: Nonlabored breathing Skin: No visual rash, normal skin tone Neuro: Alert and oriented 3 Musculoskeletal: No gross abnormalities Limitations: no limitations General appearance: alert, in no apparent distress Head exam: Present: atraumatic, normocephalic, normal inspection Eye exam: Present: normal appearance, EOMI Neck exam: Present: normal inspection. Absent: meningismus Respiratory exam: Absent: respiratory distress Cardiovascular Exam: Present: regular rate Left Hip exam: Present: normal inspection, full ROM Neurological exam: Present: alert, oriented X3 Psychiatric exam: Present: normal affect, normal mood Skin exam: Present: warm, dry, normal color Course Vital Signs 02/03/25 02/03/25 00:13 02:29 Temperature 98.1 F Pulse Rate 93 76 Respiratory 16 18 Rate Blood Pressure 123/76 127/88 O2 Sat by Pulse 99 96 Oximetry Medical Decision Making - Medical Decision Making I performed the quick note portion of this visit, electronically signed Liane Rodriguez PA-C Was pt. sent in by a medical professional or institution ([facility] Lemus, STUDENT UNION CONSULTANT, urgent care, hospital, or jail...) When possible be specific @ -No Did you speak to anyone other than the patient for history (EMS, parent, family, police, friend...)? What history was obtained from this source @ -No Did you review nursing and triage notes (agree or disagree)? Why? @ -I reviewed and agree with nursing and triage notes Were old charts reviewed (outside hosp., previous admission, EMS record, old EKG, old radiological studies, urgent care reports/EKG's, jail records)? Report findings @ -No old charts were reviewed Differential Diagnosis (chest pain, altered mental status, abdominal pain women, abdominal pain men, vaginal bleeding, weakness, fever, dyspnea, syncope, headache, dizziness, GI bleed, back pain, seizure, CVA, palpatations, mental health, musculoskeletal)? @ -Differential Musculoskeletal Muscular strain, contusion, ligament sprain, fracture, arthritis, septic arthritis, bursitis, cellulitis, muscle spasm, nerve compression, DVT, arterial occlusion, herpes zoster, electrolyte abnormality, tumor.... This is not meant to be in all inclusive list EKG interpreted by me (3pts min.). @ -As above X-rays interpreted by me (1pt min.). @ -X-ray negative for acute abnormality CT interpreted by me (1pt min.). @ -None done U/S interpreted by me (1pt. min.). @ -None done What testing was considered but not performed or refused? (CT, X-rays, U/S, labs)? Why? @ -None What meds were considered but not given or refused? Why? @ -None Did you discuss the management of the patient with other professionals (professionals i.e. , PA, STUDENT UNION CONSULTANT, lab, RT, psych nurse, social service agency director, dough puncher, teacher, staff readiness officer, case finisher)? Give summary @ -No Was smoking cessation discussed for >3mins.? @ -No Was critical care preformed (if so, how long)? @ -No Were there social determinants of health that impacted care today? How? (Homelessness, low income, unemployed, alcoholism, drug addiction, transportation, low edu. Level, literacy, decrease access to med. care, shelter, rehab)? @ -No Was there de-escalation of care discussed even if they declined (Discuss DNR or withdrawal of care, Hospice)? DNR status @ -No What co-morbidities impacted this encounter? (DM, HTN, Smoking, COPD, CAD, Cancer, CVA, ARF, Chemo, Hep., AIDS, mental health diagnosis, sleep apnea, morbid obesity)? @ -None Was patient admitted / discharged? Hospital course, mention meds given and route, prescriptions, significant lab abnormalities, going to OR and other pertinent info. @ -24-year-old male presenting with chief complaint of left hip pain. No injury or trauma. Has been ongoing for 1 month. States that he came in tonight because he could not sleep due to the pain. X-ray negative for acute abnormality. He is given ibuprofen for his pain. Follow-up with PCP. Report back to ER with any new or worsening symptoms. Discussed return parameters and answered all questions. Patient conveyed verbal understanding and agreed to the plan. I discussed this case in detail with my attending Dr. Bernal Undiagnosed new problem with uncertain prognosis? @ -No Drug Therapy requiring intensive monitoring for toxicity (Heparin, Nitro, Insulin, Cardizem)? @ -No Were any procedures done? @ -No Diagnosis/symptom? @ -Hip pain Acute, or Chronic, or Acute on Chronic? @ -Acute Uncomplicated (without systemic symptoms) or Complicated (systemic symptoms)? @ -Uncomplicated Side effects of treatment? @ -No Exacerbation, Progression, or Severe Exacerbation? @ -No Poses a threat to life or bodily function? How? (Chest pain, USA, CT, pneumonia, PE, COPD, DKA, ARF, appy, cholecystitis, CVA, Diverticulitis, Homicidal, Suicidal, threat to staff... and all critical care pts) @ -Unlikely Disposition Clinical Impression: Hip pain Disposition: HOME SELF-CARE Condition: Good Instructions (If sedation given, give patient instructions): Hip Pain (ED) Additional Instructions: Follow-up with PCP. Report back to ER with any new or worsening symptoms. Is patient prescribed a controlled substance at d/c from ED?: No Referrals: Braxton Caballero MD [Primary Care Provider] - 1-2 days Time of Disposition: 02:14
[2025-02-03] MEDS: IBUPROFEN 600 MG TAB PO STA (02:28)
[2025-02-03 02:30] VITALS: BP 127/88; PULSE 76; RESP 18
--- NOTE | 2025-02-03 02:32 | XR ---
EXAM: XR Left Hip With Pelvis When Performed, 3 Views CLINICAL HISTORY: pain TECHNIQUE: Three views of the left hip and pelvis COMPARISON: No relevant prior studies available. FINDINGS: Bones/joints: Unremarkable. No acute fracture. No dislocation. Soft tissues: Calcified vascular phleboliths. Bowel-gas pattern is unremarkable.. IMPRESSION: No acute abnormality.
== END 2025-02-03 02:30 | disposition home or self-care (01) ==
LOC: EC 23:26
DX: M25.552 Pain in left hip (principal); F17.290 Nicotine dependence, other tobacco product, uncomplicated
CPT/HCPCS: 73502; 99283